=== PATIENT | male | born 1945 | race Two or more races ===

== ENCOUNTER 2020-09-03 16:47 | Outpatient (REF) | payer MEDICARE, OTHER, SELFPAY | END 2020-09-03 16:48 | disposition home or self-care (01) | LOC: HO.LAB 16:47 | PROVIDERS: Visit Provider Internal Medicine | DX: Z20.828 Contact with and (suspected) exposure to other viral communicable diseases (principal) | CPT/HCPCS: C9803; U0003 ==

== ENCOUNTER 2023-01-31 20:06 | Emergency (ER) | payer MEDICARE, MEDICAID, SELFPAY ==
--- NOTE | ~2023-01-31 | CT_ITS ---
EXAMINATION: CT ABDOMEN AND PELVIS WITHOUT CONTRAST CLINICAL INFORMATION: UTI/hematuria COMPARISON: None available. TECHNIQUE: Multidetector volumetric imaging was performed from the superior aspect of the liver through the pubic symphysis. Sagittal and coronal reformatted images were obtained on the technologist's workstation. This CT examination was performed using dose optimization techniques as appropriate, variously including the following: *Automated exposure control *Adjustment of mA and/or kV according to patient size (this includes techniques or standardized protocols for targeted exams where dose is matched to indication/reason for exam; i.e. extremities or head) *Use of iterative reconstruction technique DLP: 702 mGy-cm FINDINGS: LUNG BASES: The visualized lung bases are unremarkable. A bipolar pacemaker is present. LIVER, GALLBLADDER, AND BILIARY TREE: The liver is normal in size, shape, and attenuation. No focal hepatic lesion or biliary ductal dilatation is present. The gallbladder is unremarkable with no evidence of radiopaque gallstones, gallbladder wall thickening, or obvious pericholecystic inflammatory changes. PANCREAS: Unremarkable. SPLEEN: Unremarkable. ADRENAL GLANDS: Unremarkable. KIDNEYS AND URETERS: The kidneys are normal in size, shape, and attenuation. Bilateral benign Bosniak class I simple cysts are present the largest measuring 3.3 cm at the right lower pole. No solid renal masses. No hydronephrosis, hydroureter, or calculi seen. No perinephric stranding. BLADDER: Unremarkable. GASTROINTESTINAL TRACT: The small and large bowel are unremarkable aside from extensive colonic diverticula without diverticulitis. The appendix is unremarkable. ABDOMINAL WALL: No significant hernia is appreciated. LYMPH NODES: No retroperitoneal lymphadenopathy. VASCULAR: Unremarkable. Calcific atherosclerotic plaque without aneurysm. PELVIC VISCERA: Minimally prominent prostate. Seminal vesicles appear normal. OSSEOUS STRUCTURES: Mild degenerative changes are present CT/CT abdomen pelvis wo IV con IMPRESSION: 1. A cause for the patient's gross hematuria has not been found. 2. Incidental note made of bilateral benign Bosniak class I renal cysts which need no further follow-up, colonic diverticulosis without diverticulitis and mildly prominent prostate. 3. There are no renal or bladder calculi seen. Fleischner guidelines were followed.
[2023-01-31 20:50] VITALS: BP 166/75; PULSE 71; RESP 18; TEMP 36.6; O2SAT 100; BMI 27.1
--- NOTE | 2023-01-31 20:52 | ED.GENADULT ---
HPI - General Adult General Chief complaint: Urogenital-Male Stated complaint: Blood in urine Time Seen by Provider: 01/31/23 22:43 Source: patient Mode of arrival: ambulatory Limitations: no limitations History of Present Illness HPI narrative: 77 yold male presents to he ED for hematuria. Patient was being treated for UTI and placed on antibiotic. Patient states he finished a course of antibiotic is still notice some blood in the urine. Patient denies gross hematuria. Patient denies any flank pain, fever, chills, nausea, vomiting, or abdominal pain. Patient has follow-up with Urology. Related Data Previous Rx's Medication Instructions Recorded cefpodoxime 100 mg tablet 100 mg PO Q12H 7 days #14 tabs 02/01/23 Allergies Allergy/AdvReac Type Severity Reaction Status Date / Time No Known Allergies Allergy Unverified 06/04/20 16:16 Review of Systems Review of Systems: hematuria Yes all other systems are reviewed and are negative [facility] Social History Social History Advance Directives: No Advance Directives Information Provided: No Physical Exam ED Vital Signs: Vital Signs - 24 hr 01/31/23 20:50 01/31/23 22:04 Temperature 97.9 F 98.3 F Pulse Rate 71 66 Respiratory Rate 18 16 Blood Pressure 166/75 H 172/69 H Pulse Oximetry 100 100 Oxygen Delivery Method Room Air Room Air BMI result Body Mass Index 27.1 Const General: cooperative, healthy appearing, comfortable, no acute distress, well developed, alert, awake and Physically active Orientation/consciousness: oriented to person, oriented to place, oriented to time and patient oriented x3 HENMT Head: Yes normal to inspection, Yes No palpable skull fracture present, Yes normocephalic, Yes atraumatic and No abrasion Eyes General: appearance normal, both eyes and all related structures Neck Neck: Yes normal visual inspection, Yes full ROM, Yes no lymphadenopathy, Yes no meningeal signs, Yes trachea midline, Yes supple, No anterior neck swelling and No tender Chest Chest palpation & inspection: normal inspection of the chest and normal palpation of entire chest wall Resp Effort & Inspection: normal respiratory effort and able to speak in complete sentences Auscultation: clear to auscultation bilaterally Cardio Jugular venous distension: no JVD Heart sounds: S1 normal heart sound present and S2 normal heart sound present GI Inspection: Yes normal to inspection and No abdominal wall ecchymosis Palpation (GI): Soft to palpation, not firm, nontender, no guarding and not rigid General: No CVA tenderness and Yes no CVA tenderness Back/Spine/Pelvis Back: no CVA tenderness, No CVA tenderness and No back tenderness Skin General skin exam: no rashes or lesions noted and elasticity normal Neuro General: oriented to person, oriented to place, oriented to time, patient oriented x3, gait normal, tone normal, moves all extremities, Normal light touch and pain sensation, no meningeal signs, no focal motor deficits, CN's II-XI intact bilaterally and normal sensation to monofilament Extrem General: Yes normal to inspection and Yes full ROM Psych Appearance: grossly normal, well kempt and not disheveled Course Course Course Narrative: This is an RME: Additional HPI, ROS, PE not included below will be deferred to primary provider. [id number]-male, with a history of diabetes, HTN, CKD, a fib with pacemaker, presenting for hematuria since yesterday. Has had hematuria for the last 2 weeks intermittently. Seen by PCP last week, given ABX for UTI. Completed entire course. no nausea or vomiting. ?Unsure if he is on blood thinners. Plan: Labs, UA ordered Medical Decision Making Medical Decision Making [facility] Narrative: 77-year-old male with known urinary tract infection presents to ED for hematuria. Patient denies any flank pain, fever, chills, nausea, vomiting, or severe abdominal pain. Patient labs are at baseline and normal. UA shows large amounts of white blood cell count red blood cells. Patient is sent for abdominal CT scan came back negative for any bladder mass, kidney stones, bladder stone, or signs of pyelonephritis. Presently negative for gross hematuria. Patient informed to call his urologist for early appointment. Patient will be placed on new antibiotics. Patient and family informed to return to the ED did any rectal bleeding, vomiting blood, or gross hematuria. Patient informed to call his PCP to discuss if he should hold the xerolta due to hematuria. Presently no indication for three way sandoval. Differential Diagnosis Differential Diagnoses: The differential diagnosis associated with the presentation includes (Kidney stones, pyelonephritis, urinary tract infection, bladder mass, bladder stone) Admission/Observation Consideration of admission/observation: Escalation of care including admission/observation considered Lab Data [facility] Lab Attestation statement: I reviewed the patient's lab results. 01/31/23 21:16 05/16/23 21:16 Labs: Lab Results 01/31/23 01/31/23 01/31/23 Range/Units 21:16 21:16 21:16 WBC 7.8 (4.8-10.8) X10*3/uL RBC 3.63 L (4.60-5.80) X10*6/uL Hgb 11.0 L (14.0-18.0) g/dl Hct 33.1 L (42.0-52.0) % MCV 91.2 (80.0-98.0) fL MCH 30.3 (27.0-33.0) pg MCHC 33.2 (31.0-36.0) g/dl RDW 12.8 (11.0-16.0) % Plt Count 182 (160-400) X10*3/uL MPV 10.0 (9.4-12.4) fL Immature Gran % (Auto) 0.3 (0.0-0.4) % Neut % (Auto) 62.1 (45-73) % Lymph % (Auto) 26.3 (20-40) % [place] % (Auto) 6.2 (2-11) % Eos % (Auto) 4.3 H (0-4) % Baso % (Auto) 0.8 (0-2) % Lymph # (Auto) 2.0 (1.2-4.9) X10*3/uL [place] # (Auto) 0.5 (0.1-1.2) X10*3/uL Eos # (Auto) 0.3 (0.0-0.4) X10*3/uL Baso # (Auto) 0.1 (0.0-0.2) X10*3/uL Abs Immat Gran (auto) 0.02 (0.00-0.03) X10*3/uL Absolute Neuts (auto) 4.8 (2.0-8.3) x10*3/uL Absolute Nucleated RBC 0.000 (0.0-0.012) X10*3/uL Nucleated RBC % (auto) 0.0 (0.0-0.2) /100WBC PT 15.4 H (10.0-13.1) SEC INR 1.3 H (0.9-1.1) APTT 39.4 H (26.0-36.4) SEC Sodium 142 (135-145) mmol/L Potassium 4.2 (3.3-5.1) mmol/L Chloride 110 H (96-108) mmol/L Carbon Dioxide 26 (22-29) mmol/L Anion Gap 10 L (12-20) BUN 23 H (9-16) mg/dL Creatinine 1.54 H (0.5-1.4) mg/dL Estim Creat Clear Calc 41.4 Estimated GFR 44 Random Glucose 87 (60-115) mg/dL Calcium 9.4 (8.4-10.2) mg/dL Magnesium 2.0 (1.6-2.6) mg/dL Total Bilirubin 0.5 (0.0-1.0) mg/dL Direct Bilirubin 0.2 (0.0-0.5) mg/dL AST 16 (5-37) U/L ALT 11 (0-40) U/L Alkaline Phosphatase 93 (39-117) U/L Total Protein 7.3 (6.5-8.0) g/dL Albumin 3.8 (3.5-5.0) g/dL Lipase 28 (8-78) U/L Urine Color Urine Appearance Urine pH (5.0-9.0) Ur Specific [place] (1.005-1.025) Urine Protein (Neg-Trace) mg/dL Urine Glucose (UA) (Negative) mg/dL Urine Ketones (Negative) mg/dL Urine Blood (Negative) Urine Nitrite (Negative) Ur Leukocyte Esterase (Negative) Urine RBC (0-2) /HPF Urine WBC (0-5) /HPF Ur Squamous Epith Cells (0-2) /HPF Urine Bacteria (None Seen) Hyaline Casts (0-2) /LPF 01/31/23 Range/Units 22:04 WBC (4.8-10.8) X10*3/uL RBC (4.60-5.80) X10*6/uL Hgb (14.0-18.0) g/dl Hct (42.0-52.0) % MCV (80.0-98.0) fL MCH (27.0-33.0) pg MCHC (31.0-36.0) g/dl RDW (11.0-16.0) % Plt Count (160-400) X10*3/uL MPV (9.4-12.4) fL Immature Gran % (Auto) (0.0-0.4) % Neut % (Auto) (45-73) % Lymph % (Auto) (20-40) % [place] % (Auto) (2-11) % Eos % (Auto) (0-4) % Baso % (Auto) (0-2) % Lymph # (Auto) (1.2-4.9) X10*3/uL [place] # (Auto) (0.1-1.2) X10*3/uL Eos # (Auto) (0.0-0.4) X10*3/uL Baso # (Auto) (0.0-0.2) X10*3/uL Abs Immat Gran (auto) (0.00-0.03) X10*3/uL Absolute Neuts (auto) (2.0-8.3) x10*3/uL Absolute Nucleated RBC (0.0-0.012) X10*3/uL Nucleated RBC % (auto) (0.0-0.2) /100WBC PT (10.0-13.1) SEC INR (0.9-1.1) APTT (26.0-36.4) SEC Sodium (135-145) mmol/L Potassium (3.3-5.1) mmol/L Chloride (96-108) mmol/L Carbon Dioxide (22-29) mmol/L Anion Gap (12-20) BUN (9-16) mg/dL Creatinine (0.5-1.4) mg/dL Estim Creat Clear Calc Estimated GFR Random Glucose (60-115) mg/dL Calcium (8.4-10.2) mg/dL Magnesium (1.6-2.6) mg/dL Total Bilirubin (0.0-1.0) mg/dL Direct Bilirubin (0.0-0.5) mg/dL AST (5-37) U/L ALT (0-40) U/L Alkaline Phosphatase (39-117) U/L Total Protein (6.5-8.0) g/dL Albumin (3.5-5.0) g/dL Lipase (8-78) U/L Urine Color BROWN Urine Appearance Hazy Urine pH 5.5 (5.0-9.0) Ur Specific [place] 1.020 (1.005-1.025) Urine Protein 100 (2+) H (Neg-Trace) mg/dL Urine Glucose (UA) Negative (Negative) mg/dL Urine Ketones Negative (Negative) mg/dL Urine Blood Large (3+) H (Negative) Urine Nitrite Negative (Negative) Ur Leukocyte Esterase Moderate (2+) H (Negative) Urine RBC >20 H (0-2) /HPF Urine WBC 21-50 H (0-5) /HPF Ur Squamous Epith Cells 11-20 (0-2) /HPF Urine Bacteria 1+ (None Seen) Hyaline Casts 0-2 (0-2) /LPF Independent Interpretation I performed an independent interpretation of an: CT Scan Radiology Impression Discussion of test interpretation with radiology: I have reviewed the radiologist's reading. Prescription Management I considered prescription management with: Antibiotic Discharge Plan Discharge Clinical Impression: Urinary tract infection, Hematuria Patient Disposition: Home, Self-Care Instructions: Urinary Tract Infection in Men (ED), Hematuria (ED) Additional Instructions: Por favor llame a silva ur?logo para john checo temprana. Regrese al servicio de urgencias por hematuria macrosc?pica, dolor abdominal, n?useas, v?mitos, fiebre, escalofr?os, dolor en el costado, tensi?n urinaria o cualquier otro s?ntoma preocupante. Ser? dado de earl con antibi?ticos. Por favor, tomy un seguimiento con silva PCP. Llame a silva PCP ma?manuel para analizar si debe dejar de clarice xarelto debido a la hematuria. Prescriptions: New cefpodoxime 100 mg tablet 100 mg PO Q12H 7 Days Qty: 14 0RF Rx Instructions: must administer with a meal/food Interventions: ED Discharge Assessment Last Done: 02/01/23 01:59 Discharge Date/Time: 02/01/23 02:00 Print Language: Anguillan
[2023-01-31 21:23] LABS: MANUAL DIFF FLAG NO
[2023-01-31 21:25] LABS: Basophils Absolute Auto 0.1 X10*3/uL (0.0-0.2); Basophils Percent Auto 0.8 % (0-2); Eosinophils Absolute Auto 0.3 X10*3/uL (0.0-0.4); Eosinophils Percent Auto 4.3 % (0-4); Hematocrit 33.1 % (42.0-52.0); Imm Gran Abs Auto 0.02 X10*3/uL (0.00-0.03); Imm Gran Pct Auto 0.3 % (0.0-0.4); Lymphocytes Percent Auto 26.3 % (20-40); Mean Corpuscular HGB Conc 33.2 g/dl (31.0-36.0); Mean Corpuscular Hemoglobin 30.3 pg (27.0-33.0); Mean Corpuscular Volume 91.2 fL (80.0-98.0); Monocytes Absolute Auto 0.5 X10*3/uL (0.1-1.2); Monocytes Percent Auto 6.2 % (2-11); Neutrophils Absolute Auto 4.8 x10*3/uL (2.0-8.3); Neutrophils Percent Auto 62.1 % (45-73); Platelet Count 182 X10*3/uL (160-400); Red Blood Count 3.63 X10*6/uL (4.60-5.80); Red Cell Distribution Width 12.8 % (11.0-16.0); White Blood Count 7.8 X10*3/uL (4.8-10.8)
[2023-01-31 21:32] LABS: INTERNATIONAL NORM RATIO 1.3 (0.9-1.1); Prothrombin Time 15.4 SEC (10.0-13.1)
[2023-01-31 21:35] LABS: Partial Thromboplastin Time 39.4 SEC (26.0-36.4)
[2023-01-31 21:56] LABS: Alanine Aminotransferase 11 U/L (0-40); Albumin Level 3.8 g/dL (3.5-5.0); Alkaline Phosphatase 93 U/L (39-117); Anion Gap 10 (12-20); Aspartate Amino Transferase 16 U/L (5-37); Bilirubin Direct 0.2 mg/dL (0.0-0.5); Bilirubin Total 0.5 mg/dL (0.0-1.0); Blood Urea Nitrogen 23 mg/dL (9-16); Calcium 9.4 mg/dL (8.4-10.2); Carbon Dioxide 26 mmol/L (22-29); Chloride 110 mmol/L (96-108); Creatinine Clr Calc Pharmacy 41.4; Estimated Glomerular Filt Rate 44; Glucose Random 87 mg/dL (60-115); Lipase 28 U/L (8-78); Potassium 4.2 mmol/L (3.3-5.1); Sodium 142 mmol/L (135-145); Total Protein 7.3 g/dL (6.5-8.0)
[2023-01-31 22:04] VITALS: BP 172/69; PULSE 66; RESP 16; TEMP 36.8; O2SAT 100
--- NOTE | 2023-01-31 22:09 | PC.NURSE ---
patient awake and alert. skin pwd, resp even and non labored, speaking in full, clear sentences. patient with c/o hematuria since yesterday, recently finished macrobid for UTI, denies dysuria. currently taking xarelto. daughter at bedside. awaiting initial provider aurelio.
[2023-01-31 22:13] LABS: Appearance Urine Hazy; Color Urine BROWN; Glucose Urine UA Negative (Negative); Leukocyte Esterase Urine Moderate (2+) (Negative); Nitrite Urine Negative (Negative); PH 5.5 (5.0-9.0); UMIC TRIGGER UACC YES; Urine Blood Large (3+) (Negative); Urine Ketones Negative (Negative); Urine Protein 100 (2+) mg/dL (Neg-Trace)
[2023-01-31 22:19] LABS: Bacteria Urine 1+ (None Seen); Hyaline Casts Urine 0-2 /LPF (0-2); RBC Urine >20 /HPF (0-2); UACC Culture Trigger YES; WBC Urine 21-50 /HPF (0-5)
== END 2023-02-01 02:00 | disposition home or self-care (01) ==
PROVIDERS: Physician Assistant Medical; Emergency Provider Emergency Medicine Emergency Medical Services
DX: N39.0 Urinary tract infection, site not specified (principal); R31.9 Hematuria, unspecified
CPT/HCPCS: 36415; 74176; 80048; 80076; 81001; 83690; 83735; 85025; 85610; 85730; 87086; 87088; 87186; 99284

== ENCOUNTER 2023-07-25 11:06 | Outpatient (AMB) | payer MEDICARE, MEDICAID, SELFPAY ==
[2023-07-25 11:15] VITALS: BP 120/60; PULSE 62; O2SAT 100; BMI 28.3
--- NOTE | 2023-07-25 11:15 | HO.NEPHOV_ITS ---
HPI HPI Comments History of Present Illness Details 76 years old man with DM2 with hyperglyc emia, CKD3b, HTN, hypothyroidism, paroxysmal A-fib on DOAC, complete heart block s/p PPM 06/09. h/o Hematuria- seen by Urology and underwent cystoscopy Baseline creatinine is 1.54 Here for follow up Accompanied by family [facility] Medical History (Updated 07/25/23 @ 11:27 by Karson Miller MD) H/O Mobitz type I block Hyperlipidemia Neuropathy Mitral valve regurgitation Hypothyroidism HTN (hypertension) CKD (chronic kidney disease) Chronic depression Social History (Updated 07/25/23 @ 11:20 by Diane Darnell MA) Alcohol intake: never Patient Tobacco Use Status: Never used Tobacco Vital Signs 07/25/23 11:15 Height 5 ft 10 in Weight 197 lb 4 oz BMI 28.3 BP 120/60 Blood Pressure Location Lt brachial Position Sitting Pulse 62 Pulse Source Pulse Oximeter Pulse Oximetry (%) 100 Oxygen Delivery Method Room Air Physical Exam Vital Signs: Last Vital Signs Pulse 62 07/25/23 11:15 BP 120/60 07/25/23 11:15 Pulse Ox 100 07/25/23 11:15 Oxygen Delivery Method Room Air 07/25/23 11:15 BMI result Body Mass Index 28.3 Const General: comfortable Nutritional Appearance: well nourished Orientation/consciousness: patient oriented x3 HEENT Head: No normal to inspection Mouth: moist mucous membranes Eyes General: appearance normal, both eyes and all related structures Visual Almeida: normal visual almeida by confrontation Neck Neck: Yes supple and Yes no JVD Resp Effort & Inspection: normal respiratory effort and respiratory effort not decreased Auscultation: clear to auscultation bilaterally, no rales and rub present Cardio Jugular venous distension: no JVD Palpation: no palpable S3 and no palpable S4 Heart sounds: no rubs GI Inspection: Yes normal to inspection Palpation (GI): Soft to palpation and nontender Percussion: No Fluid wave present Auscultation: normal bowel sounds General: Yes no CVA tenderness Back/Spine/Pelvis Back: no CVA tenderness Skin General skin exam: no rashes or lesions noted Neuro General: patient oriented x3 Extrem General: Yes no pedal edema and No clubbing Results Reviewed Results Reviewed: CT scan Apr 2023 in [facility] Marked diffuse thickening of the urinary bladder wall. Differential considerations include an infectious or inflammatory etiology. A neoplastic process cannot be excluded. There is no evidence of renal calculi or obstructive uropathy. Bilateral hypodense renal lesions which likely represent cysts but are not fully characterized without intravenous contrast. Assessment & Plan Assessment & Plan (1) CKD (chronic kidney disease): Code(s): N18.9 - Chronic kidney disease, unspecified Qualifiers: Chronic kidney disease stage 3 subtype: stage 3a (GFR 45-59) Plan: 77-year-old man with longstanding hypertension diabetes mellitus with CKD. At present renal functions close to baseline. (2) Hematuria: Code(s): R31.9 - Hematuria, unspecified Qualifiers: Hematuria type: unspecified type Qualified Code(s): R31.9 - Hematuria, unspecified Plan: No further hematuria. CT scan unremarkable. Awaiting cystoscopy Neurology follow-up Orders: Orders Blood Urea Nitrogen 07/25/23 N18.9 - Chronic kidney disease, unspecified Creatinine 07/25/23 N18.9 - Chronic kidney disease, unspecified Calcium 07/25/23 N18.9 - Chronic kidney disease, unspecified Electrolytes 07/25/23 N18.9 - Chronic kidney disease, unspecified Complete Blood Count no Diff 07/25/23 N18.9 - Chronic kidney disease, unspecified Total Protein Urine Random 07/25/23 N18.9 - Chronic kidney disease, unspecified Creatinine Urine 07/25/23 N18.9 - Chronic kidney disease, unspecified UA and rflx microscopic 07/25/23 N18.9 - Chronic kidney disease, unspecified Coding Level of Care Code Est Pt Level 3 (08731) Diagnoses CKD (chronic kidney disease) N18.9 Chronic kidney disease stage 3 subtype: stage 3a (GFR 45-59) Hematuria, unspecified type R31.9 Hematuria type: unspecified type
== END 2023-07-25 11:31 | disposition home or self-care (01) ==
PROVIDERS: PCP Nurse Practitioner Family; Visit Provider Internal Medicine Hypertension Specialist
DX: N18.9 Chronic kidney disease, unspecified (principal); R31.9 Hematuria, unspecified
CPT/HCPCS: 99213

== ENCOUNTER → 2023-07-25 11:06 | Outpatient (BNVA) | payer MEDICARE, OTHER, SELFPAY | PROVIDERS: Visit Provider Internal Medicine Hypertension Specialist | DX: E11.65 Type 2 diabetes mellitus with hyperglycemia (principal); N18.30 Chronic kidney disease, stage 3 unspecified; R31.9 Hematuria, unspecified | CPT/HCPCS: 36415; 80051; 81001; 82310; 82565; 82570; 84156; 84520; 85027; 99212 ==

== ENCOUNTER 2023-07-25 11:48 | Outpatient (REF) | payer MEDICARE, OTHER, SELFPAY ==
[2023-07-25 13:25] LABS: Appearance Urine Clear; Color Urine Yellow; Glucose Urine UA Negative (Negative); Leukocyte Esterase Urine Moderate (2+) (Negative); Nitrite Urine Negative (Negative); PH 5.5 (5.0-9.0); Specific Gravity - Urine 1.015 (1.005-1.025); UMIC TRIGGER UA YES; Urine Blood Negative (Negative); Urine Ketones Negative (Negative); Urine Protein Negative (Neg-Trace)
[2023-07-25 13:39] LABS: Hematocrit 34.5 % (42.0-52.0); Hemoglobin 11.5 g/dl (14.0-18.0); Mean Corpuscular HGB Conc 33.3 g/dl (31.0-36.0); Mean Corpuscular Hemoglobin 30.9 pg (27.0-33.0); Mean Corpuscular Volume 92.7 fL (80.0-98.0); Mean Platelet Volume 11.2 fL (9.4-12.4); Platelet Count 153 X10*3/uL (160-400); Red Blood Count 3.72 X10*6/uL (4.60-5.80); Red Cell Distribution Width 12.6 % (11.0-16.0); White Blood Count 7.1 X10*3/uL (4.8-10.8)
[2023-07-25 14:13] LABS: Anion Gap 15 (12-20); Blood Urea Nitrogen 35 mg/dL (9-16); Calcium 9.5 mg/dL (8.4-10.2); Carbon Dioxide 22 mmol/L (22-29); Chloride 107 mmol/L (96-108); Estimated Glomerular Filt Rate 33; Potassium 4.7 mmol/L (3.3-5.1); Sodium 139 mmol/L (135-145)
[2023-07-25 14:21] LABS: Creatinine Urine 127.36 mg/dL; Total Protein Urine Random 14 mg/dL (<12)
[2023-07-25 14:33] LABS: Bacteria Urine 1+ (None Seen); RBC Urine 0-2 /HPF (0-2); Squamous Epithelial Cell Urine 0-2 /HPF (0-2); WBC Urine 21-50 /HPF (0-5)
== END 2023-07-25 11:49 | disposition home or self-care (01) ==
LOC: HO.10HDL 11:48
PROVIDERS: Visit Provider Internal Medicine Hypertension Specialist
DX: Z13.89 Encounter for screening for other disorder (principal)
CPT/HCPCS: 36415; 80051; 81001; 82310; 82565; 82570; 84156; 84520; 85027

== ENCOUNTER 2024-01-22 10:56 | Outpatient (AMB) | payer MEDICARE, MEDICAID, SELFPAY ==
[2024-01-22 10:57] VITALS: BP 120/52; PULSE 79; O2SAT 98; BMI 29.3
--- NOTE | 2024-01-22 10:57 | HO.NEPHOV ---
Vital Signs 01/22/24 10:57 Height 5 ft 10 in Weight 204 lb BMI 29.3 BP 120/52 L Blood Pressure Location Lt brachial Position Sitting Pulse 79 Pulse Source Pulse Oximeter Pulse Oximetry (%) 98 Oxygen Delivery Method Room Air Intake Visit Reasons: 6M follow up/ LVM Internal Review And Audit Compliance Required: No Accompanied by: Spouse Allergies No Known Allergies Allergy (Verified 01/22/24 10:59) HPI Comments Details: 76 years old man with DM2 with hyperglycemia, CKD3b, HTN, hypothyroidism, paroxysmal A-fib on DOAC, complete heart block s/p PPM 06/09. h/o Hematuria- seen by Urology and underwent cystoscopy Baseline creatinine is 1.54 Here for follow up Accompanied by family No new complaints today [facility] Medical History (Updated 07/25/23 @ 11:27 by Karson Miller MD) H/O Mobitz type I block Hyperlipidemia Neuropathy Mitral valve regurgitation Hypothyroidism HTN (hypertension) CKD (chronic kidney disease) Chronic depression Social History Alcohol intake: never Patient Tobacco Use Status: Never used Tobacco Physical Exam Vital Signs: Last Vital Signs Pulse 79 01/22/24 10:57 BP 120/52 L 01/22/24 10:57 Pulse Ox 98 01/22/24 10:57 Oxygen Delivery Method Room Air 01/22/24 10:57 BMI result Body Mass Index 29.3 Const General: comfortable Nutritional Appearance: well nourished Orientation/consciousness: patient oriented x3 HEENT Head: No normal to inspection Mouth: moist mucous membranes Eyes General: appearance normal, both eyes and all related structures Visual Almeida: normal visual almeida by confrontation Neck Neck: Yes supple and Yes no JVD Resp Effort & Inspection: normal respiratory effort and respiratory effort not decreased Auscultation: clear to auscultation bilaterally, no rales and rub present Cardio Jugular venous distension: no JVD Palpation: no palpable S3 and no palpable S4 Heart sounds: no rubs GI Inspection: Yes normal to inspection Palpation (GI): Soft to palpation and nontender Percussion: No Fluid wave present Auscultation: normal bowel sounds General: Yes no CVA tenderness Back/Spine/Pelvis Back: no CVA tenderness Skin General skin exam: no rashes or lesions noted Neuro General: patient oriented x3 Extrem General: Yes no pedal edema and No clubbing Results Reviewed Results Reviewed: CT scan CT/CT abdomen pelvis wo IV con IMPRESSION: 1. A cause for the patient's gross hematuria has not been found. 2. Incidental note made of bilateral benign Bosniak class I renal cysts which need no further follow-up, colonic diverticulosis without diverticulitis and mildly prominent prostate. 3. There are no renal or bladder calculi seen. Nephrology Results: Hgb 11.5 g/dl (14.0-18.0) L 07/25/23 WBC 7.1 X10*3/uL (4.8-10.8) 07/25/23 Plt Count 153 X10*3/uL (160-400) L 07/25/23 Sodium 139 mmol/L (135-145) 07/25/23 Potassium 4.7 mmol/L (3.3-5.1) 07/25/23 Chloride 107 mmol/L (96-108) 07/25/23 Carbon Dioxide 22 mmol/L (22-29) 07/25/23 BUN 35 mg/dL (9-16) H 07/25/23 Creatinine 1.98 mg/dL (0.5-1.4) H 07/25/23 Calcium 9.5 mg/dL (8.4-10.2) 07/25/23 Urine Protein Negative mg/dL (Neg-Trace) 07/25/23 Urine Creatinine 127.36 mg/dL 07/25/23 Assessment & Plan Assessment & Plan (1) CKD (chronic kidney disease): Code(s): N18.9 - Chronic kidney disease, unspecified Category: Medical Qualifiers: Chronic kidney disease stage 3 subtype: stage 3a (GFR 45-59) (2) Hematuria: Code(s): R31.9 - Hematuria, unspecified Category: Medical Qualifiers: Hematuria type: unspecified type Qualified Code(s): R31.9 - Hematuria, unspecified Plan 77-year-old man with longstanding hypertension diabetes mellitus with CKD. Creatinine is up to 1.9 Further serologies ordered NO obstruction by imaging Avoid nephrotoxins including NSAIDS Hematuria s/o Cystoscopy No further hematuria. CT scan unremarkable; Urology follow-up as needed Await above serology Orders: Orders Neutrophil Cytoplasma Ab Today N18.9 - Chronic kidney disease, unspecified Proteinase 3 PR3 Antibodies Today N18.9 - Chronic kidney disease, unspecified Anti Glomerular Basement Memb Today N18.9 - Chronic kidney disease, unspecified Complement C4 Today N18.9 - Chronic kidney disease, unspecified Complement C3 Today N18.9 - Chronic kidney disease, unspecified Comprehensive Met. Panel Today N18.9 - Chronic kidney disease, unspecified Complete Blood Count Auto Diff Today N18.30 - Chronic kidney disease, stage 3 unspecified, N18.9 - Chronic kidney disease, unspecified REJI Reflex Titer and Pattern Today N18.9 - Chronic kidney disease, unspecified Myeloperoxidase Antibody Today N18.9 - Chronic kidney disease, unspecified Protein Electrophoresis, Serum Today N18.9 - Chronic kidney disease, unspecified Coding Level of Care Code Est Pt Level 4 (53142) Diagnoses CKD (chronic kidney disease) N18.9 Chronic kidney disease stage 3 subtype: stage 3a (GFR 45-59) Hematuria, unspecified type R31.9 Hematuria type: unspecified type
== END 2024-01-22 11:19 | disposition home or self-care (01) ==
PROVIDERS: PCP Nurse Practitioner Family; Visit Provider Internal Medicine Hypertension Specialist
DX: N18.9 Chronic kidney disease, unspecified (principal); R31.9 Hematuria, unspecified
CPT/HCPCS: 99214

== ENCOUNTER → 2024-01-22 10:56 | Outpatient (BNVA) | payer MEDICARE, OTHER, SELFPAY | PROVIDERS: PCP Nurse Practitioner Family; Visit Provider Internal Medicine Hypertension Specialist ==

== ENCOUNTER 2024-01-22 11:23 | Outpatient (REF) | payer MEDICARE, OTHER, SELFPAY ==
[2024-01-22 13:29] LABS: MANUAL DIFF FLAG NO
[2024-01-22 13:36] LABS: Basophils Percent Auto 0.5 % (0-2); Eosinophils Absolute Auto 0.2 X10*3/uL (0.0-0.4); Eosinophils Percent Auto 2.9 % (0-4); Imm Gran Abs Auto 0.02 X10*3/uL (0.00-0.03); Imm Gran Pct Auto 0.3 % (0.0-0.4); Lymphocytes Absolute Auto 1.3 X10*3/uL (1.2-4.9); Lymphocytes Percent Auto 21.6 % (20-40); Mean Corpuscular HGB Conc 33.3 g/dl (31.0-36.0); Mean Corpuscular Hemoglobin 31.6 pg (27.0-33.0); Mean Corpuscular Volume 94.8 fL (80.0-98.0); Mean Platelet Volume 11.7 fL (9.4-12.4); Monocytes Absolute Auto 0.3 X10*3/uL (0.1-1.2); Monocytes Percent Auto 5.6 % (2-11); Neutrophils Absolute Auto 4.1 x10*3/uL (2.0-8.3); Neutrophils Percent Auto 69.1 % (45-73); Platelet Count 129 X10*3/uL (160-400); Red Blood Count 3.48 X10*6/uL (4.60-5.80); Red Cell Distribution Width 12.8 % (11.0-16.0); White Blood Count 5.9 X10*3/uL (4.8-10.8)
[2024-01-22 13:56] LABS: Alanine Aminotransferase 9 U/L (0-40); Albumin Level 4.1 g/dL (3.5-5.0); Alkaline Phosphatase 70 U/L (39-117); Anion Gap 12 (12-20); Aspartate Amino Transferase 13 U/L (5-37); Bilirubin Total 0.6 mg/dL (0.0-1.0); Blood Urea Nitrogen 45 mg/dL (9-16); Calcium 9.9 mg/dL (8.4-10.2); Carbon Dioxide 23 mmol/L (22-29); Chloride 109 mmol/L (96-108); Estimated Glomerular Filt Rate 32; Glucose Random 177 mg/dL (60-115); Potassium 5.1 mmol/L (3.3-5.1); Sodium 139 mmol/L (135-145); Total Protein 7.9 g/dL (6.5-8.0)
[2024-01-23 14:28] LABS: Anti Glomerular Basement Memb <1.0 AI; Myeloperoxidase Antibody <1.0 AI; Proteinase 3 PR3 Antibodies <1.0 AI
[2024-01-23 14:43] LABS: Prot Elec - Albumin 4.2 g/dL (3.8-4.8); Prot Elec - Alpha1 0.3 g/dL (0.2-0.3); Prot Elec - Alpha2 0.7 g/dL (0.5-0.9); Prot Elec - Beta 1 0.4 g/dL (0.4-0.6); Prot Elec - Beta 2 0.4 g/dL (0.2-0.5); Prot Elec - Gamma 1.4 g/dL (0.8-1.7); Prot Elec - Total Protein 7.5 g/dL (6.1-8.1)
[2024-01-24 08:29] LABS: Neutrophil Cyto Ab Screen NEGATIVE (NEGATIVE)
[2024-01-24 13:28] LABS: Complement C3 85 mg/dL (82-185)
[2024-01-26 12:59] LABS: Anti Nuclear Antibody Screen POSITIVE (NEGATIVE)
== END 2024-01-22 11:24 | disposition home or self-care (01) ==
LOC: HO.10HDL 11:23
PROVIDERS: Visit Provider Internal Medicine Hypertension Specialist
DX: N18.30 Chronic kidney disease, stage 3 unspecified (principal)
CPT/HCPCS: 36415; 80053; 83520; 84165; 85025; 86021; 86036; 86038; 86039; 86160; 99212

== ENCOUNTER 2024-03-27 09:06 | Emergency (ER) | payer MEDICARE, MEDICAID, SELFPAY ==
[2024-03-27] VITALS (7 sets, daily range): BP systolic 140–164; BP diastolic 60–86; PULSE 59–72; RESP 15–18; TEMP 36.6–36.9; O2SAT 98–100; BMI 31.1
--- NOTE | 2024-03-27 | ECG_ITS ---
Test Reason : dizziness Blood Pressure : / mmHG Vent. Rate : 062 BPM Atrial Rate : 062 BPM P-R Int : 178 ms QRS Dur : 158 ms QT Int : 474 ms P-R-T Axes : 117 -71 087 degrees QTc Int : 481 ms AV dual-paced rhythm Abnormal ECG When compared with ECG of 27-MAR-2024 09:18, No significant change was found Referred By: Carla Calloway Electronically Signed By:Oseas Lopes
--- NOTE | ~2024-03-27 | CT_ITS ---
EXAMINATION: CT HEAD WITHOUT CONTRAST CLINICAL INFORMATION: Acute dizziness, vomiting on Xarelto. COMPARISON: Head CT from 07/31/2015 TECHNIQUE: Contiguous axial imaging was performed from the skull base to vertex without intravenous administration of contrast. This CT examination was performed using dose optimization techniques as appropriate, variously including the following: *Automated exposure control *Adjustment of mA and/or kV according to patient size (this includes techniques or standardized protocols for targeted exams where dose is matched to indication/reason for exam; i.e. extremities or head) *Use of iterative reconstruction technique DLP: 684 mGy-cm FINDINGS: No acute intracranial findings. There is atherosclerotic calcification of cavernous carotid arteries. The mayorga-white matter differentiation is well preserved. No evidence of an acute major vascular territory infarction. No intracranial hemorrhage, extra-axial fluid collection, focal mass effect or midline shift. The ventricles have normal size and configuration; no hydrocephalus. The brainstem and cerebellum have a normal appearance. The cerebellar tonsils are in normal position. The calvarium is intact. Small 0.3 cm mucous retention cyst of the right maxillary sinus. The mastoid air cells and middle ear cavities are well aerated. Prior ocular lens extractions. The orbits are unremarkable. Mild osteoarthrosis of the temporomandibular joints. CT/CT head/brain wo IV con IMPRESSION: No mass, intracranial hemorrhage or other acute intracranial pathology.
--- NOTE | 2024-03-27 09:34 | ED.DIZZY ---
HPI - Dizziness General Chief Complaint: Dizziness Stated Complaint: VOMITING,DIZZY PER EMS Time Seen by Provider: 03/27/24 09:13 Source: patient Mode of arrival: ambulatory Limitations: no limitations History of Present Illness ED Provider: GILBERT APONTE Narrative: 78 yo male with PMH of CKD, HTN, CAD s/p CABG x3V, DM, hypothyroidism, PAF on xarelto, complete heart block s/p PPM 2021 here with c/o waking up feeling the room was spinning it is intermittent and then he vomited x 2. Symptoms come and go he felt fine at one point able to shower then it started again. He has not eaten or drank anything this AM. He has no pain, chest pain, dyspnea or numbness/weakness. No recent infections. He is not sure what makes it worse MD elicited complaint: dizziness Pertinent past history: pacemaker Onset (ago): hour(s) (730am woke up with symptoms) Timing: awoke with symptoms Severity: moderate Description: room spinning History of similar symptoms: No Exacerbating factors: change in body position Relieving factors: remaining still Associated symptoms: nausea and vomiting Related Data Home Medications ?Medication ?Instructions ?Recorded ?Confirmed amlodipine 5 mg tablet 5 mg PO DAILY 07/24/23 atorvastatin 20 mg tablet 20 mg PO DAILY 07/24/23 glipizide 10 mg tablet, extended 10 mg PO DAILY 07/24/23 release 24 hr levothyroxine 112 mcg tablet 112 mcg PO DAILY 07/24/23 lisinopril 20 1 tab PO DAILY 07/24/23 mg-hydrochlorothiazide 25 mg tablet omeprazole 20 mg capsule,delayed 20 mg PO DAILY 07/24/23 release rivaroxaban 20 mg tablet (Xarelto) 20 mg PO DAILY 07/24/23 aspirin 81 mg tablet,delayed 81 mg PO DAILY 01/22/24 release Allergies Allergy/AdvReac Type Severity Reaction Status Date / Time No Known Allergies Allergy Verified 03/27/24 09:22 Review of Systems Review of Systems: Constitutional : No Fever, No Chills, No Fatigue ENT/Mouth : No sore throat, No Rhinorrhea Eyes: No Eye Pain, No Swelling, No Redness Cardiovascular : No Chest Pain, No SOB, No Dyspnea on Exertion Respiratory : No Cough, No Sputum Gastrointestinal : pos Nausea, pos Vomiting, No Diarrhea, No abdominal Pain Genitourinary : No Dysuria, No Urinary Frequency, No Hematuria, Musculoskeletal : No joint pain, No Myalgias, No Joint Swelling Skin : No Skin Lesions, No rash Neuro : No Weakness, No Numbness, pos Dizziness, no Headache Psych : No Anxiety/Panic, No Depression Heme/Lymph: No Bruising, No Bleeding,No Lymphadenopathy Endocrine : No Polyuria, No Polydipsia All other systems reviewed and are negative [facility] Past Medical History Attestation statement: The following information was validated with the patient. Source: old records reviewed Medical History H/O Mobitz type I block Hyperlipidemia Neuropathy Mitral valve regurgitation Hypothyroidism HTN (hypertension) CKD (chronic kidney disease) Chronic depression Social History Social History Alcohol intake: never Patient Tobacco Use Status: Never used Tobacco Smoked in Last 30 Days: No Use of substances other than those prescribed or required for medical reasons: No Advance Directives: No Advance Directives Information Provided: Yes Do you have a plan to hurt others: No Plan Physical Exam Vital Signs: Vital Signs: Last Vital Signs Temp 98.1 F 03/27/24 12:30 Pulse 61 03/27/24 12:30 Resp 16 03/27/24 12:30 BP 147/67 H 03/27/24 10:00 Pulse Ox 98 03/27/24 10:00 O2 Del Method Room Air 03/27/24 12:30 BMI result Body Mass Index 31.1 Appearance: Alert. Oriented X3. No acute distress. Eyes: Pupils equal, round and reactive to light. ENT: Pharynx normal. Neck: Normal inspection. Neck supple. CVS: Normal heart rate and rhythm. Pulses normal. Respiratory: No respiratory distress. Breath sounds normal. Abdomen: Soft and non-tender. Skin: Skin warm and dry. Normal skin color. Normal skin turgor. Extremities: No lower extremity edema. No calf ttp Neuro: Oriented X 3. No motor deficit. No sensory deficit. no nystagmus Course Course Course Narrative: K only 5.4 low dose lokelma ordered Medications Administered Discontinued Medications Generic Name Dose Route Start Last Admin Trade Name Freq PRN Reason Stop Dose Admin Ondansetron HCl 4 mg 03/27/24 09:32 03/27/24 09:36 Ondansetron Hcl 4 Mg/2 Ml Vial IVPUSH 03/27/24 09:33 4 mg ONCE ONE Administration Sodium Zirconium Cyclosilicate 5 gm 03/27/24 10:09 03/27/24 10:33 Sodium Zirconium Cyclosilicate 5 Gm Powd.Pack PO 03/27/24 10:10 5 gm ONCE ONE Administration Medical Decision Making Medical Decision Making [facility] Narrative: 78 yo male with PMH of CKD, HTN, CAD s/p CABG x3V, DM, hypothyroidism, PAF on xarelto, complete heart block s/p PPM 2021 here with nonspecific dizziness and n/v that is now improved he has no other symptoms to suggest posterior stroke he did wake with symptoms and is on DOAC at this time EKG, ortho VS, CBC, Cr and ortho VS ordered. Hx of same in past and he was anemic no GIB symptoms reported. Differential Diagnosis Differential Diagnoses: The differential diagnosis associated with the presentation includes anemia, MAHAD on CKD, orthostatic hypotension, ICH Admission/Observation Consideration of admission/observation: Escalation of care including admission/observation considered VS stable CT scan normal negative ortho VS paced rhythm trop flat x 2 no vomiting here doubt UTI trace bacteria will wait on culture has no urinary symptoms ambulating fine no complaints no ataxia looks well can go home Lab Data [facility] Lab Attestation statement: I reviewed the patient's lab results. 03/27/24 09:29 03/27/24 09:29 Labs: Lab Results 03/27/24 03/27/24 03/27/24 Range/Units 09:29 09:49 11:31 WBC 6.0 (4.8-10.8) X10*3/uL RBC 3.44 L (4.60-5.80) X10*6/uL Hgb 11.0 L (14.0-18.0) g/dl Hct 32.1 L (42.0-52.0) % MCV 93.3 (80.0-98.0) fL MCH 32.0 (27.0-33.0) pg MCHC 34.3 (31.0-36.0) g/dl RDW 12.5 (11.0-16.0) % Plt Count 136 L (160-400) X10*3/uL MPV 10.8 (9.4-12.4) fL Immature Gran % (Auto) 0.2 (0.0-0.4) % Neut % (Auto) 79.5 H (45-73) % Lymph % (Auto) 14.3 L (20-40) % Dillon % (Auto) 4.0 (2-11) % Eos % (Auto) 1.5 (0-4) % Baso % (Auto) 0.5 (0-2) % Lymph # (Auto) 0.9 L (1.2-4.9) X10*3/uL Dillon # (Auto) 0.2 (0.1-1.2) X10*3/uL Eos # (Auto) 0.1 (0.0-0.4) X10*3/uL Baso # (Auto) 0.0 (0.0-0.2) X10*3/uL Abs Immat Gran (auto) 0.01 (0.00-0.03) X10*3/uL Absolute Neuts (auto) 4.8 (2.0-8.3) x10*3/uL Absolute Nucleated RBC 0.000 (0.0-0.012) X10*3/uL Nucleated RBC % (auto) 0.0 (0.0-0.2) /100WBC PT 17.8 H (11.1-13.3) SEC INR 1.5 H (0.9-1.1) Sodium 138 (135-145) mmol/L Potassium 5.4 H (3.3-5.1) mmol/L Chloride 110 H (96-108) mmol/L Carbon Dioxide 22 (22-29) mmol/L Anion Gap 11 L (12-20) BUN 39 H (9-16) mg/dL Creatinine 1.89 H (0.5-1.4) mg/dL Estim Creat Clear Calc 37.8 Estimated GFR 35 Random Glucose 168 H (60-115) mg/dL Calcium 9.6 (8.4-10.2) mg/dL Magnesium 2.3 (1.6-2.6) mg/dL Total Bilirubin 0.5 (0.0-1.0) mg/dL AST 14 (5-37) U/L ALT 7 (0-40) U/L Alkaline Phosphatase 84 (39-117) U/L Troponin I High Sens 6.6 (<3.5-35.0) ng/L B-Natriuretic Peptide 121 H (<100) pg/mL Total Protein 7.6 (6.5-8.0) g/dL Albumin 4.0 (3.5-5.0) g/dL Lipase 23 (8-78) U/L Urine Color Yellow Urine Appearance Clear Urine pH 6.5 (5.0-9.0) Ur Specific Boron 1.015 (1.005-1.025) Urine Protein Negative (Neg-Trace) mg/dL Urine Glucose (UA) Negative (Negative) mg/dL Urine Ketones Negative (Negative) mg/dL Urine Blood Negative (Negative) Urine Nitrite Negative (Negative) Ur Leukocyte Esterase Small (1+) H (Negative) Urine RBC 0-2 (0-2) /HPF Urine WBC 6-10 H (0-5) /HPF Ur Squamous Epith Cells 3-5 (0-2) /HPF Urine Bacteria Trace (None Seen) Hyaline Casts 0-2 (0-2) /LPF Influenza Type A (PCR) NEGATIVE (Negative) Influenza Type B (PCR) NEGATIVE (Negative) RSV RNA Qual (PCR) NEGATIVE (Negative) SARS-CoV-2 RNA (RT-PCR) NEGATIVE (Negative) 03/27/24 Range/Units 12:54 WBC (4.8-10.8) X10*3/uL RBC (4.60-5.80) X10*6/uL Hgb (14.0-18.0) g/dl Hct (42.0-52.0) % MCV (80.0-98.0) fL MCH (27.0-33.0) pg MCHC (31.0-36.0) g/dl RDW (11.0-16.0) % Plt Count (160-400) X10*3/uL MPV (9.4-12.4) fL Immature Gran % (Auto) (0.0-0.4) % Neut % (Auto) (45-73) % Lymph % (Auto) (20-40) % Dillon % (Auto) (2-11) % Eos % (Auto) (0-4) % Baso % (Auto) (0-2) % Lymph # (Auto) (1.2-4.9) X10*3/uL Dillon # (Auto) (0.1-1.2) X10*3/uL Eos # (Auto) (0.0-0.4) X10*3/uL Baso # (Auto) (0.0-0.2) X10*3/uL Abs Immat Gran (auto) (0.00-0.03) X10*3/uL Absolute Neuts (auto) (2.0-8.3) x10*3/uL Absolute Nucleated RBC (0.0-0.012) X10*3/uL Nucleated RBC % (auto) (0.0-0.2) /100WBC PT (11.1-13.3) SEC INR (0.9-1.1) Sodium (135-145) mmol/L Potassium (3.3-5.1) mmol/L Chloride (96-108) mmol/L Carbon Dioxide (22-29) mmol/L Anion Gap (12-20) BUN (9-16) mg/dL Creatinine (0.5-1.4) mg/dL Estim Creat Clear Calc Estimated GFR Random Glucose (60-115) mg/dL Calcium (8.4-10.2) mg/dL Magnesium (1.6-2.6) mg/dL Total Bilirubin (0.0-1.0) mg/dL AST (5-37) U/L ALT (0-40) U/L Alkaline Phosphatase (39-117) U/L Troponin I High Sens 6.8 (<3.5-35.0) ng/L B-Natriuretic Peptide (<100) pg/mL Total Protein (6.5-8.0) g/dL Albumin (3.5-5.0) g/dL Lipase (8-78) U/L Urine Color Urine Appearance Urine pH (5.0-9.0) Ur Specific Boron (1.005-1.025) Urine Protein (Neg-Trace) mg/dL Urine Glucose (UA) (Negative) mg/dL Urine Ketones (Negative) mg/dL Urine Blood (Negative) Urine Nitrite (Negative) Ur Leukocyte Esterase (Negative) Urine RBC (0-2) /HPF Urine WBC (0-5) /HPF Ur Squamous Epith Cells (0-2) /HPF Urine Bacteria (None Seen) Hyaline Casts (0-2) /LPF Influenza Type A (PCR) (Negative) Influenza Type B (PCR) (Negative) RSV RNA Qual (PCR) (Negative) SARS-CoV-2 RNA (RT-PCR) (Negative) Independent Interpretation I performed an independent interpretation of an: EKG and CT Scan Interpretation: Rate: 62 Rhythm: paced [place]: left wide QRS complex. ST T wave : qTC: 481 prior studies: paced The study has been interpreted contemporaneously by me. . Radiology Impression Discussion of test interpretation with radiology: I have reviewed the radiologist's reading. Independent Historian Clinical information obtained from an independent historian. History obtained from or confirmed by: Spouse and EMS External Record Review External record reviewed: Inpatient record and Office record Discharge Plan Discharge Clinical Impression: Dizziness Patient Disposition: Home, Self-Care Instructions: Dizziness (ED) Additional Instructions: negative CT head, heart tests normal x 2 no change in blood counts kidney function at baseline normal walking in ED stay with responsible adult return for any worsening symptoms or concerns Prescriptions: No Action levothyroxine 112 mcg tablet 112 mcg PO DAILY Xarelto 20 mg tablet 20 mg PO DAILY lisinopril-hydrochlorothiazide 20-25 mg tablet 1 tab PO DAILY omeprazole 20 mg capsule,delayed release(DR/EC) 20 mg PO DAILY amlodipine 5 mg tablet 5 mg PO DAILY glipizide 10 mg tablet extended release 24hr 10 mg PO DAILY atorvastatin 20 mg tablet 20 mg PO DAILY aspirin 81 mg tablet,delayed release (DR/EC) 81 mg PO DAILY Print Language: Yemeni
[2024-03-27] MEDS: ondansetron HCL 4 MG/2 ML VIAL IVPUSH (09:36)
[2024-03-27 09:37] LABS: MANUAL DIFF FLAG NO
[2024-03-27 09:39] LABS: Basophils Percent Auto 0.5 % (0-2); Eosinophils Absolute Auto 0.1 X10*3/uL (0.0-0.4); Eosinophils Percent Auto 1.5 % (0-4); Hematocrit 32.1 % (42.0-52.0); Imm Gran Abs Auto 0.01 X10*3/uL (0.00-0.03); Imm Gran Pct Auto 0.2 % (0.0-0.4); Lymphocytes Absolute Auto 0.9 X10*3/uL (1.2-4.9); Lymphocytes Percent Auto 14.3 % (20-40); Mean Corpuscular HGB Conc 34.3 g/dl (31.0-36.0); Mean Corpuscular Volume 93.3 fL (80.0-98.0); Mean Platelet Volume 10.8 fL (9.4-12.4); Monocytes Absolute Auto 0.2 X10*3/uL (0.1-1.2); Neutrophils Absolute Auto 4.8 x10*3/uL (2.0-8.3); Neutrophils Percent Auto 79.5 % (45-73); Platelet Count 136 X10*3/uL (160-400); Red Blood Count 3.44 X10*6/uL (4.60-5.80); Red Cell Distribution Width 12.5 % (11.0-16.0)
[2024-03-27 09:44] LABS: INTERNATIONAL NORM RATIO 1.5 (0.9-1.1); Prothrombin Time 17.8 SEC (11.1-13.3)
[2024-03-27 09:56] LABS: Alanine Aminotransferase 7 U/L (0-40); Alkaline Phosphatase 84 U/L (39-117); Anion Gap 11 (12-20); Aspartate Amino Transferase 14 U/L (5-37); Bilirubin Total 0.5 mg/dL (0.0-1.0); Blood Urea Nitrogen 39 mg/dL (9-16); Calcium 9.6 mg/dL (8.4-10.2); Carbon Dioxide 22 mmol/L (22-29); Chloride 110 mmol/L (96-108); Creatinine Clr Calc Pharmacy 37.8; Estimated Glomerular Filt Rate 35; Glucose Random 168 mg/dL (60-115); Lipase 23 U/L (8-78); Magnesium 2.3 mg/dL (1.6-2.6); Potassium 5.4 mmol/L (3.3-5.1); Sodium 138 mmol/L (135-145); Total Protein 7.6 g/dL (6.5-8.0)
[2024-03-27 10:02] LABS: B Type Natriuretic Peptide 121 pg/mL (<100)
[2024-03-27 10:03] LABS: Troponin-I High Sensitivity 6.6 ng/L (<3.5-35.0)
[2024-03-27] MEDS: Sodium Zirconium Cyclosilicate 5 GM POWD.PACK PO (10:33)
--- NOTE | 2024-03-27 10:34 | PC.NURSE ---
pt medicated per order -float rn
[2024-03-27 11:03] LABS: Influenza A PCR NEGATIVE (Negative); Influenza B PCR NEGATIVE (Negative); Resp Syncy Virus RNA Qual PCR NEGATIVE (Negative); SARS COV2 PCR INHOUSE NEGATIVE (Negative)
[2024-03-27 11:50] LABS: Appearance Urine Clear; Color Urine Yellow; Glucose Urine UA Negative (Negative); Leukocyte Esterase Urine Small (1+) (Negative); Nitrite Urine Negative (Negative); PH 6.5 (5.0-9.0); Specific Gravity - Urine 1.015 (1.005-1.025); UMIC TRIGGER UACC YES; Urine Blood Negative (Negative); Urine Ketones Negative (Negative); Urine Protein Negative (Neg-Trace)
[2024-03-27 11:55] LABS: Bacteria Urine Trace (None Seen); Hyaline Casts Urine 0-2 /LPF (0-2); RBC Urine 0-2 /HPF (0-2); UACC Culture Trigger YES
[2024-03-27 13:32] LABS: Troponin-I High Sensitivity 6.8 ng/L (<3.5-35.0)
== END 2024-03-27 14:17 | disposition home or self-care (01) ==
PROVIDERS: Emergency Provider Emergency Medicine; PCP Nurse Practitioner Family
DX: R42 Dizziness and giddiness (principal); R11.2 Nausea with vomiting, unspecified; I25.10 Atherosclerotic heart disease of native coronary artery without angina pectoris; R94.31 Abnormal electrocardiogram [ECG] [EKG]; R06.02 Shortness of breath; Z03.818 Encounter for observation for suspected exposure to other biological agents ruled out; Z79.899 Other long term (current) drug therapy; Z79.01 Long term (current) use of anticoagulants
CPT/HCPCS: 0241U; 36415; 70450; 80053; 81001; 83690; 83735; 83880; 84484; 85025; 85610; 87086; 87088; 87186; 93005; 96374; 99284; 99285; J2405

== ENCOUNTER → 2024-03-27 09:21 | Outpatient (BNV) | payer MEDICARE, MEDICAID, SELFPAY | PROVIDERS: Emergency Provider Emergency Medicine; PCP Nurse Practitioner Family; Visit Provider Internal Medicine Cardiovascular Disease | DX: R94.31 Abnormal electrocardiogram [ECG] [EKG] (principal) | CPT/HCPCS: 93010 ==

== ENCOUNTER 2024-04-16 11:44 | Outpatient (AMB) | payer MEDICARE, MEDICAID, SELFPAY ==
[2024-04-16 11:50] VITALS: BP 112/54; PULSE 77; O2SAT 99; BMI 29.6
--- NOTE | 2024-04-16 11:50 | HO.NEPHOV_ITS ---
Vital Signs 04/16/24 11:50 Height 5 ft 10 in Weight 206 lb BMI 29.6 BP 112/54 L Blood Pressure Location Lt brachial Position Sitting Pulse 77 Pulse Source Pulse Oximeter Pulse Oximetry (%) 99 Oxygen Delivery Method Room Air Intake Visit Reasons: PCP req sooner appt- High K- Confirmed Intake Note: [facility] [place] [facility] [employer] declined patient filled out refusal from and scanned into pat ient chart. His daughter will translate Holly Parker [employer] Required: No Maintenance [employer] Services: [employer] Offered & Declined Accompanied by: Daughter Allergies No Known Allergies Allergy (Verified 04/16/24 11:55) HPI Comments Details: 76 years old man with DM2 with hyperglycemia, CKD3b, HTN, hypothyroidism, paroxysmal A-fib on DOAC, complete heart block s/p PPM 06/09. h/o Hematuria- seen by Urology and underwent cystoscopy Baseline creatinine is 1.54 Here for follow up Accompanied by family 04/16/24 Recently he visited ER and was found to have potassium of 5.4. Prior to this visit he had some nausea or vomiting. P.o. intake was poor no urinary symptoms. UTI was initially suspected and started on nitrofurantoin which was later discontinued. Today he is feeling well. [facility] Medical History H/O Mobitz type I block Hyperlipidemia Neuropathy Mitral valve regurgitation Hypothyroidism HTN (hypertension) CKD (chronic kidney disease) Chronic depression Social History Alcohol intake: never Patient Tobacco Use Status: Never used Tobacco Physical Exam Vital Signs: Last Vital Signs Pulse 77 04/16/24 11:50 BP 112/54 L 04/16/24 11:50 Pulse Ox 99 04/16/24 11:50 Oxygen Delivery Method Room Air 04/16/24 11:50 BMI result Body Mass Index 29.6 Const General: comfortable; No acute distress Orientation/consciousness: patient oriented x3 Eyes General: appearance normal, both eyes and all related structures Visual Almeida: normal visual almeida by confrontation Neck Neck: Yes supple and Yes no JVD Resp Effort & Inspection: normal respiratory effort and respiratory effort not decreased Auscultation: rhonchi Cardio Palpation: no palpable S3 and no palpable S4 Heart sounds: no rubs GI Inspection: Yes normal to inspection Palpation (GI): Soft to palpation Percussion: Yes normal to percussion Auscultation: normal bowel sounds General: Yes no CVA tenderness Back/Spine/Pelvis Back: no CVA tenderness Skin General skin exam: no petechiae and no purpura Neuro General: patient oriented x3 and no focal motor deficits Extrem General: No clubbing and No edema Results Reviewed Nephrology Results: Hgb 11.0 g/dl (14.0-18.0) L 03/27/24 WBC 6.0 X10*3/uL (4.8-10.8) 03/27/24 Plt Count 136 X10*3/uL (160-400) L 03/27/24 Sodium 138 mmol/L (135-145) 03/27/24 Potassium 5.4 mmol/L (3.3-5.1) H 03/27/24 Chloride 110 mmol/L (96-108) H 03/27/24 Carbon Dioxide 22 mmol/L (22-29) 03/27/24 BUN 39 mg/dL (9-16) H 03/27/24 Creatinine 1.89 mg/dL (0.5-1.4) H 03/27/24 Calcium 9.6 mg/dL (8.4-10.2) 03/27/24 Urine Protein Negative mg/dL (Neg-Trace) 03/27/24 Urine Creatinine 127.36 mg/dL 07/25/23 Assessment & Plan Assessment & Plan (1) CKD (chronic kidney disease): Code(s): N18.9 - Chronic kidney disease, unspecified Category: Medical Qualifiers: Chronic kidney disease stage 3 subtype: stage 3a (GFR 45-59) (2) Hematuria: Code(s): R31.9 - Hematuria, unspecified Category: Medical Qualifiers: Hematuria type: unspecified type Qualified Code(s): R31.9 - Hematuria, unspecified Plan 77-year-old man with longstanding hypertension diabetes mellitus with CKD. Creatinine is up to 1.9 Renal function is close to baseline. NO obstruction by imaging Avoid nephrotoxins including NSAIDS He had 1 episode of mild hyperkalemia. This is probably due to the continued use of MELO inhibitors in the setting of volume depletion which could have occurred with nausea or vomiting and poor p.o. intake. She will repeat potassium and renal function today. I expect these to have returned to baseline if the potassium stays persistently elevated I will lower the MELO inhibitor and use Lokelma p.r.n.. He will benefit from a low-potassium diet. h/o Hematuria s/o Cystoscopy No further hematuria. CT scan unremarkable; Urology follow-up as needed Orders: Orders Basic Metabolic Panel Today N18.9 - Chronic kidney disease, unspecified Coding Level of Care Code Est Pt Level 4 (93047) Diagnoses CKD (chronic kidney disease) N18.9 Chronic kidney disease stage 3 subtype: stage 3a (GFR 45-59) Hematuria, unspecified type R31.9 Hematuria type: unspecified type
== END 2024-04-16 12:17 | disposition home or self-care (01) ==
PROVIDERS: PCP Nurse Practitioner Family; Visit Provider Internal Medicine Hypertension Specialist
DX: N18.9 Chronic kidney disease, unspecified (principal); R31.9 Hematuria, unspecified
CPT/HCPCS: 99214

== ENCOUNTER → 2024-04-16 11:44 | Outpatient (BNVA) | payer MEDICARE, MEDICAID, SELFPAY | PROVIDERS: PCP Nurse Practitioner Family; Visit Provider Internal Medicine Hypertension Specialist | DX: E11.22 Type 2 diabetes mellitus with diabetic chronic kidney disease (principal); E11.65 Type 2 diabetes mellitus with hyperglycemia; I12.9 Hypertensive chronic kidney disease with stage 1 through stage 4 chronic kidney disease, or unspecified chronic kidney disease; N18.30 Chronic kidney disease, stage 3 unspecified; R31.9 Hematuria, unspecified | CPT/HCPCS: 99212 ==

== ENCOUNTER 2024-04-17 08:38 | Outpatient (REF) | payer MEDICARE, MEDICAID, SELFPAY ==
[2024-04-17 11:26] LABS: Anion Gap 13 (12-20); Blood Urea Nitrogen 43 mg/dL (9-16); Calcium 9.8 mg/dL (8.4-10.2); Carbon Dioxide 23 mmol/L (22-29); Chloride 107 mmol/L (96-108); Estimated Glomerular Filt Rate 27; Glucose Random 124 mg/dL (60-115); Potassium 4.8 mmol/L (3.3-5.1); Sodium 138 mmol/L (135-145)
== END 2024-04-17 08:39 | disposition home or self-care (01) ==
LOC: HO.10HDL 08:38
PROVIDERS: Visit Provider Internal Medicine Hypertension Specialist
DX: N18.9 Chronic kidney disease, unspecified (principal)
CPT/HCPCS: 36415; 80048

== ENCOUNTER 2024-06-20 10:11 | Outpatient (AMB) | payer MEDICARE, MEDICAID, SELFPAY ==
[2024-06-20 10:15] VITALS: BP 118/50; PULSE 79; O2SAT 98; BMI 30.1
--- NOTE | 2024-06-20 10:15 | HO.NEPHOV_ITS ---
Vital Signs 06/20/24 10:15 Height 5 ft 10 in Weight 210 lb BMI 30.1 BP 118/50 L Blood Pressure Location Rt brachial Position Sitting Pulse 79 Pulse Source Pulse Oximeter Pulse Oximetry (%) 98 Oxygen Delivery Method Room Air Intake Visit Reasons: CKD/ 5 MO FU/ Conf Appliances Sample Maker Name: lianna [id number] Accompanied by: Spouse Allergies No Known Allergies Allergy (Verified 04/16/24 11:55) Medication List - Last Reconciled 06/20/24 by Karson Miller MD amlodipine 5 mg PO DAILY aspirin 81 mg PO DAILY atorvastatin 20 mg PO DAILY glipizide ER 10 mg PO DAILY levothyroxine 88 mcg PO DAILY lisinopril-hydrochlorothiazide 20-25 mg 1 tab PO DAILY nitrofurantoin monohyd/m-cryst 100 mg (Macrobid) 100 mg PO Q12H 5 days omeprazole 20 mg PO DAILY rivaroxaban (Xarelto) 20 mg PO DAILY tamsulosin 0.4 mg PO DAILY HPI Comments Details: 76 years old man with DM2 with hyperglycemia, CKD3b, HTN, hypothyroidism, paroxysmal A-fib on DOAC, complete heart block s/p PPM 06/09. h/o Hematuria- seen by Urology and underwent cystoscopy Baseline creatinine is 1.54 Here for follow up Accompanied by family 04/16/24 Recently he visited ER and was found to have potassium of 5.4. Prior to this visit he had some nausea or vomiting. P.o. intake was poor no urinary symptoms. UTI was initially suspected and started on nitrofurantoin which was later discontinued. Today he is feeling well. 06/20/24 Seen by Started on Tamsulosin No urinary symptoms today No hematuria PFSH Medical History H/O Mobitz type I block Hyperlipidemia Neuropathy Mitral valve regurgitation Hypothyroidism HTN (hypertension) CKD (chronic kidney disease) Chronic depression Social History Alcohol intake: never Patient Tobacco Use Status: Never used Tobacco Physical Exam Vital Signs: Last Vital Signs Pulse 79 06/20/24 10:15 BP 118/50 L 06/20/24 10:15 Pulse Ox 98 06/20/24 10:15 Oxygen Delivery Method Room Air 06/20/24 10:15 BMI result Body Mass Index 30.1 Const General: comfortable; No acute distress Orientation/consciousness: patient oriented x3 Eyes General: appearance normal, both eyes and all related structures Visual Almeida: normal visual almeida by confrontation Neck Neck: Yes supple and Yes no JVD Resp Effort & Inspection: normal respiratory effort and respiratory effort not decreased Auscultation: rhonchi Cardio Palpation: no palpable S3 and no palpable S4 Heart sounds: no rubs GI Inspection: Yes normal to inspection Palpation (GI): Soft to palpation Percussion: Yes normal to percussion Auscultation: normal bowel sounds General: Yes no CVA tenderness Back/Spine/Pelvis Back: no CVA tenderness Skin General skin exam: no petechiae and no purpura Neuro General: patient oriented x3 and no focal motor deficits Extrem General: No clubbing and No edema Results Reviewed Nephrology Results: Hgb 11.0 g/dl (14.0-18.0) L 03/27/24 WBC 6.0 X10*3/uL (4.8-10.8) 03/27/24 Plt Count 136 X10*3/uL (160-400) L 03/27/24 Sodium 138 mmol/L (135-145) 04/17/24 Potassium 4.8 mmol/L (3.3-5.1) 04/17/24 Chloride 107 mmol/L (96-108) 04/17/24 Carbon Dioxide 23 mmol/L (22-29) 04/17/24 BUN 43 mg/dL (9-16) H 04/17/24 Creatinine 2.34 mg/dL (0.5-1.4) H 04/17/24 Calcium 9.8 mg/dL (8.4-10.2) 04/17/24 Urine Protein Negative mg/dL (Neg-Trace) 03/27/24 Urine Creatinine 127.36 mg/dL 07/25/23 Assessment & Plan Assessment & Plan (1) CKD (chronic kidney disease): Code(s): N18.9 - Chronic kidney disease, unspecified Category: Medical Qualifiers: Chronic kidney disease stage 3 subtype: stage 3a (GFR 45-59) (2) Hematuria: Code(s): R31.9 - Hematuria, unspecified Category: Medical Qualifiers: Hematuria type: unspecified type Qualified Code(s): R31.9 - Hematuria, unspecified Plan 77-year-old man with longstanding hypertension diabetes mellitus with CKD. NO obstruction by imaging Avoid nephrotoxins including NSAIDS He had 1 episode of mild hyperkalemia. This is probably due to the continued use of MELO inhibitors in the setting of volume depletion which could have occurred with nausea or vomiting and poor p.o. intake. repeat potassium was normal Cr bumped up to 2.34 in March- recheck today Seen by And started on Tamsulosin h/o Hematuria s/o Cystoscopy No further hematuria. CT scan unremarkable; Urology follow-up as needed Orders: Orders Basic Metabolic Panel Today N18.9 - Chronic kidney disease, unspecified Complete Blood Count Auto Diff Today N18.9 - Chronic kidney disease, unspecified Basic Metabolic Panel 4 Months N18.9 - Chronic kidney disease, unspecified Coding Level of Care Code Est Pt Level 4 (16216) Diagnoses CKD (chronic kidney disease) N18.9 Chronic kidney disease stage 3 subtype: stage 3a (GFR 45-59) Hematuria, unspecified type R31.9 Hematuria type: unspecified type
== END 2024-06-20 10:37 | disposition home or self-care (01) ==
PROVIDERS: PCP Nurse Practitioner Family; Visit Provider Internal Medicine Hypertension Specialist
DX: E11.22 Type 2 diabetes mellitus with diabetic chronic kidney disease (principal); N18.32 Chronic kidney disease, stage 3b; R31.9 Hematuria, unspecified
CPT/HCPCS: 99213

== ENCOUNTER 2024-06-20 10:11 | Outpatient (REF) | payer MEDICARE, OTHER, SELFPAY ==
[2024-06-20 11:16] LABS: MANUAL DIFF FLAG NO
[2024-06-20 11:59] LABS: Basophils Percent Auto 0.4 % (0-2); Eosinophils Absolute Auto 0.1 X10*3/uL (0.0-0.4); Eosinophils Percent Auto 1.8 % (0-4); Hematocrit 30.4 % (42.0-52.0); Hemoglobin 9.9 g/dl (14.0-18.0); Imm Gran Abs Auto 0.03 X10*3/uL (0.00-0.03); Imm Gran Pct Auto 0.4 % (0.0-0.4); Lymphocytes Absolute Auto 1.5 X10*3/uL (1.2-4.9); Lymphocytes Percent Auto 22.6 % (20-40); Mean Corpuscular HGB Conc 32.6 g/dl (31.0-36.0); Mean Corpuscular Hemoglobin 30.7 pg (27.0-33.0); Mean Corpuscular Volume 94.4 fL (80.0-98.0); Mean Platelet Volume 11.3 fL (9.4-12.4); Monocytes Absolute Auto 0.4 X10*3/uL (0.1-1.2); Monocytes Percent Auto 6.4 % (2-11); Neutrophils Absolute Auto 4.6 x10*3/uL (2.0-8.3); Neutrophils Percent Auto 68.4 % (45-73); Platelet Count 136 X10*3/uL (160-400); Red Blood Count 3.22 X10*6/uL (4.60-5.80); Red Cell Distribution Width 12.6 % (11.0-16.0); White Blood Count 6.7 X10*3/uL (4.8-10.8)
[2024-06-20 12:27] LABS: Anion Gap 11 (12-20); Blood Urea Nitrogen 42 mg/dL (9-16); Calcium 10.2 mg/dL (8.4-10.2); Carbon Dioxide 23 mmol/L (22-29); Chloride 110 mmol/L (96-108); Estimated Glomerular Filt Rate 27; Glucose Random 141 mg/dL (60-115); Potassium 5.3 mmol/L (3.3-5.1); Sodium 139 mmol/L (135-145)
== END 2024-06-20 10:12 | disposition home or self-care (01) ==
LOC: HO.LAB 10:11
PROVIDERS: PCP Nurse Practitioner Family; Visit Provider Internal Medicine Hypertension Specialist
DX: I12.9 Hypertensive chronic kidney disease with stage 1 through stage 4 chronic kidney disease, or unspecified chronic kidney disease (principal); E11.22 Type 2 diabetes mellitus with diabetic chronic kidney disease; N18.31 Chronic kidney disease, stage 3a; R31.9 Hematuria, unspecified; Z79.84 Long term (current) use of oral hypoglycemic drugs
CPT/HCPCS: 36415; 80048; 85025; 99212

== ENCOUNTER 2024-08-01 05:45 | Emergency (ER) | payer OTHER, MEDICARE, MEDICAID, SELFPAY ==
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
--- NOTE | 2024-08-01 05:47 | ECG_ITS ---
Test Reason : chest Blood Pressure : / mmHG Vent. Rate : 068 BPM Atrial Rate : 068 BPM P-R Int : 178 ms QRS Dur : 156 ms QT Int : 456 ms P-R-T Axes : 080 -71 088 degrees QTc Int : 484 ms AV dual-paced rhythm Abnormal ECG When compared with ECG of 27-MAR-2024 09:21, Vent. rate has increased BY 6 BPM Referred By: Generic ED Physician Electronically Signed By:Oseas Lopes
[2024-08-01 05:55] VITALS: BP 143/60; PULSE 62; RESP 16; TEMP 36.3; O2SAT 100; BMI 29.7
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
[2024-08-01 06:51] LABS: MANUAL DIFF FLAG NO
[2024-08-01 06:56] LABS: Basophils Percent Auto 0.5 % (0-2); Eosinophils Absolute Auto 0.2 X10*3/uL (0.0-0.4); Eosinophils Percent Auto 2.8 % (0-4); Hematocrit 30.7 % (42.0-52.0); Hemoglobin 10.1 g/dl (14.0-18.0); Imm Gran Abs Auto 0.02 X10*3/uL (0.00-0.03); Imm Gran Pct Auto 0.3 % (0.0-0.4); Lymphocytes Absolute Auto 1.2 X10*3/uL (1.2-4.9); Mean Corpuscular HGB Conc 32.9 g/dl (31.0-36.0); Mean Corpuscular Hemoglobin 30.5 pg (27.0-33.0); Mean Corpuscular Volume 92.7 fL (80.0-98.0); Mean Platelet Volume 10.8 fL (9.4-12.4); Monocytes Absolute Auto 0.4 X10*3/uL (0.1-1.2); Monocytes Percent Auto 6.4 % (2-11); Neutrophils Absolute Auto 4.6 x10*3/uL (2.0-8.3); Platelet Count 144 X10*3/uL (160-400); Red Blood Count 3.31 X10*6/uL (4.60-5.80); Red Cell Distribution Width 12.3 % (11.0-16.0); White Blood Count 6.4 X10*3/uL (4.8-10.8)
[2024-08-01 07:00] LABS: INTERNATIONAL NORM RATIO 1.9 (0.9-1.1); Prothrombin Time 22.6 SEC (10.9-12.4)
[2024-08-01 07:03] LABS: Partial Thromboplastin Time 46.2 SEC (26.0-36.8)
[2024-08-01 07:07] LABS: Alanine Aminotransferase 9 U/L (0-40); Albumin Level 3.9 g/dL (3.5-5.0); Alkaline Phosphatase 71 U/L (39-117); Anion Gap 14 (12-20); Aspartate Amino Transferase 17 U/L (5-37); Bilirubin Total 0.4 mg/dL (0.0-1.0); Blood Urea Nitrogen 38 mg/dL (9-16); Calcium 9.7 mg/dL (8.4-10.2); Carbon Dioxide 21 mmol/L (22-29); Chloride 107 mmol/L (96-108); Creatinine Clr Calc Pharmacy 32.5; Estimated Glomerular Filt Rate 30; Glucose Random 120 mg/dL (60-115); Potassium 5.3 mmol/L (3.3-5.1); Sodium 137 mmol/L (135-145); Total Protein 7.4 g/dL (6.5-8.0)
[2024-08-01 07:16] LABS: Troponin-I High Sensitivity 8.6 ng/L (<3.5-35.0)
[2024-08-01] MEDS: Acetaminophen 325 MG TABLET 975 MG PO (07:17)
[2024-08-01 07:56] VITALS: BP 127/64; PULSE 60; RESP 9; TEMP 36.6; O2SAT 100
[2024-08-01 10:44] LABS: Glucose, Whole Blood 71 mg/dL (60-115)
[2024-08-01 11:18] VITALS: BP 128/64; PULSE 60; RESP 12; TEMP 36.1; O2SAT 100
== END 2024-08-01 11:18 | disposition home or self-care (01) ==
PROVIDERS: Emergency Medicine Emergency Medical Services; Emergency Provider Student in an Organized Health Care Education/Training Program; PCP Nurse Practitioner Family
DX: R07.89 Other chest pain (principal); E11.9 Type 2 diabetes mellitus without complications; I12.9 Hypertensive chronic kidney disease with stage 1 through stage 4 chronic kidney disease, or unspecified chronic kidney disease; N18.32 Chronic kidney disease, stage 3b; M54.2 Cervicalgia; M54.6 Pain in thoracic spine; R51.9 Headache, unspecified; Z79.899 Other long term (current) drug therapy
CPT/HCPCS: 36415; 70450; 71250; 72125; 80053; 82947; 84484; 85025; 85610; 85730; 93005; 99284; 99285

== ENCOUNTER → 2024-08-01 05:47 | Outpatient (BNV) | payer MEDICARE, MEDICAID, SELFPAY | PROVIDERS: Emergency Provider Student in an Organized Health Care Education/Training Program; PCP Nurse Practitioner Family; Visit Provider Internal Medicine Cardiovascular Disease | DX: R94.31 Abnormal electrocardiogram [ECG] [EKG] (principal) | CPT/HCPCS: 93010 ==

== ENCOUNTER → 2024-08-01 06:21 | Outpatient (BNV) | payer MEDICARE, MEDICAID, SELFPAY | PROVIDERS: Emergency Provider Emergency Medicine Emergency Medical Services; PCP Nurse Practitioner Family; Visit Provider Radiology Diagnostic Radiology | DX: M54.2 Cervicalgia (principal) | CPT/HCPCS: 71250 ==

== ENCOUNTER 2024-08-02 07:44 | Emergency (ER) | payer MEDICARE, MEDICAID, SELFPAY ==
--- NOTE | ~2024-08-02 | CT_ITS ---
EXAMINATION: CT ORBIT WITHOUT CONTRAST CLINICAL INFORMATION: Left eye hemorrhagic chemosis COMPARISON: None available. TECHNIQUE: This CT examination was performed using dose optimization techniques as appropriate, variously including the following: *Automated exposure control *Adjustment of mA and/or kV according to patient size (this includes techniques or standardized protocols for targeted exams where dose is matched to indication/reason for exam; i.e. extremities or head) *Use of iterative reconstruction technique DLP: 159 mGy-cm FINDINGS: There is preseptal soft tissue edema pattern. No hematoma, mass or fluid collection in the intraconal or the extraconal compartments of the orbits. The eyes are intact. The intraconal segment of the optic nerves are symmetric in diameter. The extraocular muscles are normal. The orbital rims, orbital fissures and orbital apices are intact. Foramina rotundum, foramen ovale and vidian canals are intact (type II). Calcified plaques in the cavernous and supraclinoid segments of the ICAs. The infraorbital foramina are intact. Mucosal thickening in the included paranasal sinuses. There is a 10 mm osteoma, left anterior ethmoid air cells/left frontal ethmoid recess. No air-fluid levels in the included paranasal sinuses. Tympanic cavities and mastoid cells are aerated. Pneumatized petrous apices, congenital. Probable old traumatic deformity nasal bones.. CT/CT orbit BI wo IV con IMPRESSION: No hematoma or fluid collections, retrobulbar/intraconal compartments. Electronically signed by: Eddie Talley MD 08/02/2024 09:49 AM EST
[2024-08-02 07:47] VITALS: BP 137/60; PULSE 68; RESP 16; TEMP 36.5; O2SAT 100; BMI 29.7
[2024-08-02 07:59] VITALS: BP 96/33; PULSE 68; RESP 18; TEMP 36.5; O2SAT 100
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
[2024-08-02] MEDS: Tetracaine HCl/PF 0.5% Oph Sol 4 ML DROPS 1 DROP EYE-LEFT (09:24)
[2024-08-02] MEDS: Fluorescein Sodium STRIP 1 STRIP EYE-LEFT (09:24)
[2024-08-02] MEDS: Diphth,Pertus(ACell),Tet Adult 0.5 ML SYRINGE IM (09:34)
[2024-08-02] MEDS: cefTRIAXone sodium 1 GM VIAL IVPUSH (09:34)
[2024-08-02 09:35] LABS: MANUAL DIFF FLAG NO
[2024-08-02 09:36] LABS: Basophils Percent Auto 0.4 % (0-2); Eosinophils Absolute Auto 0.1 X10*3/uL (0.0-0.4); Eosinophils Percent Auto 1.6 % (0-4); Hematocrit 31.2 % (42.0-52.0); Hemoglobin 10.4 g/dl (14.0-18.0); Imm Gran Abs Auto 0.02 X10*3/uL (0.00-0.03); Imm Gran Pct Auto 0.3 % (0.0-0.4); Lymphocytes Absolute Auto 1.1 X10*3/uL (1.2-4.9); Mean Corpuscular HGB Conc 33.3 g/dl (31.0-36.0); Mean Corpuscular Hemoglobin 30.8 pg (27.0-33.0); Mean Corpuscular Volume 92.3 fL (80.0-98.0); Mean Platelet Volume 10.9 fL (9.4-12.4); Monocytes Absolute Auto 0.4 X10*3/uL (0.1-1.2); Monocytes Percent Auto 5.2 % (2-11); Neutrophils Percent Auto 78.5 % (45-73); Platelet Count 154 X10*3/uL (160-400); Red Blood Count 3.38 X10*6/uL (4.60-5.80); Red Cell Distribution Width 12.4 % (11.0-16.0); White Blood Count 7.6 X10*3/uL (4.8-10.8)
[2024-08-02 09:51] LABS: Alanine Aminotransferase 7 U/L (0-40); Alkaline Phosphatase 78 U/L (39-117); Anion Gap 10 (12-20); Aspartate Amino Transferase 18 U/L (5-37); Bilirubin Total 0.5 mg/dL (0.0-1.0); Blood Urea Nitrogen 38 mg/dL (9-16); Calcium 9.2 mg/dL (8.4-10.2); Carbon Dioxide 24 mmol/L (22-29); Chloride 108 mmol/L (96-108); Creatinine Clr Calc Pharmacy 31.5; Estimated Glomerular Filt Rate 29; Glucose Random 150 mg/dL (60-115); Magnesium 2.2 mg/dL (1.6-2.6); Potassium 5.7 mmol/L (3.3-5.1); Sodium 136 mmol/L (135-145); Total Protein 7.5 g/dL (6.5-8.0)
[2024-08-02 09:52] LABS: INTERNATIONAL NORM RATIO 1.8 (0.9-1.1); Prothrombin Time 21.1 SEC (10.9-12.4)
[2024-08-02 10:02] VITALS: BP 142/69; PULSE 63; RESP 18; TEMP 36.6; O2SAT 100
[2024-08-02 10:05] VITALS: BP 142/69; PULSE 63; RESP 18; TEMP 36.6; O2SAT 100
[2024-08-02] MEDS: Sodium Zirconium Cyclosilicate 10 GM POWD.PACK PO (10:18)
--- NOTE | 2024-08-02 10:28 | PC.NURSE ---
attempted call to [facility] for report. no answer after several minutes
--- NOTE | 2024-08-02 11:11 | PC.NURSE ---
attempted to call [facility] ED again, no answer
== END 2024-08-02 10:05 | disposition short-term general hospital (02) ==
PROVIDERS: Physician Assistant; Emergency Provider Student in an Organized Health Care Education/Training Program; PCP Nurse Practitioner Family
DX: H11.32 Conjunctival hemorrhage, left eye (principal); H57.12 Ocular pain, left eye; E11.22 Type 2 diabetes mellitus with diabetic chronic kidney disease; I12.9 Hypertensive chronic kidney disease with stage 1 through stage 4 chronic kidney disease, or unspecified chronic kidney disease; N18.32 Chronic kidney disease, stage 3b; E03.9 Hypothyroidism, unspecified; I48.91 Unspecified atrial fibrillation; Z79.01 Long term (current) use of anticoagulants; Z23 Encounter for immunization; Z79.899 Other long term (current) drug therapy
CPT/HCPCS: 36415; 70480; 80053; 83735; 85025; 85610; 90471; 90715; 99285; J0696

== ENCOUNTER → 2024-08-02 08:31 | Outpatient (BNV) | payer MEDICARE, MEDICAID, SELFPAY | PROVIDERS: Emergency Provider Student in an Organized Health Care Education/Training Program; PCP Nurse Practitioner Family; Visit Provider Radiology Diagnostic Radiology | DX: H11.32 Conjunctival hemorrhage, left eye (principal) | CPT/HCPCS: 70480 ==

== ENCOUNTER 2024-10-17 08:52 | Outpatient (REF) | payer MEDICARE, MEDICAID, SELFPAY ==
[2024-10-17 10:11] LABS: Anion Gap 11 (12-20); Blood Urea Nitrogen 35 mg/dL (9-16); Calcium 9.3 mg/dL (8.4-10.2); Carbon Dioxide 23 mmol/L (22-29); Chloride 110 mmol/L (96-108); Estimated Glomerular Filt Rate 33; Glucose Random 128 mg/dL (60-115); Potassium 5.5 mmol/L (3.3-5.1); Sodium 138 mmol/L (135-145)
--- OUTSIDE RECORDS SUMMARY | 2024-10-17 11:46 | XMS_ITS | Clinical Summary ---
Author Organization Formerly [facility] Address [address] [place] [address] Care Team Providers Care Child Welfare Social Worker Name Role Phone Pcp, No Primary Care Provider Unavailabl e Allergies No known active allergies Encounters Date Type Department Care Team Description 08/02/2024 1:05 PM EST Ancillary Procedure [facility] Radiology [address] [place] [address] Provider, File Room 08/02/2024 11:26 AM EST - 08/02/2024 5:05 PM EST [facility] Emergency Department [address] [place] [address] Alyson Islas MD Abbott, Lincoln F, MD Subconjunctival hemorrhage of left eye (Primary Dx) Discharge Disposition: Home or Self Care 08/02/2024 Travel from Last 3 Months Social History Tobacco Use Types Packs/Day Years Used Date Smoking Tobacco: Never Assessed Sex and Gender Information Value Date Recorded Sex Assigned at Male 08/02/2024 1:15 PM EST Gender Identity Male 08/02/2024 1:15 PM EST Sexual Orientation Heterosexual (straight) 08/02 1:15 PM EST Last Filed Vital Signs Vital Sign Reading Time Taken Comments Blood Pressure 149/71 08/02/2024 3:36 PM EST Pulse 60 08/02/2024 3:36 PM EST Temperature 36 ??C (96.8 ??F) 08/02/2024 11:22 AM EST Respiratory Rate 16 08/02/2024 3:36 PM EST Oxygen Saturation 100% 08/02/2024 3:36 PM EST Inhaled Oxygen Concentration - - Weight - - Height - - Body Mass Index - - Plan of Treatment Health Maintenance Due Date Last Done Comments Hepatitis C Virus Screening 1945 DTaP/Tdap/Td Vaccines (1 - Tdap) 1964 Pneumococcal Vaccines 50+ (1 of 1 - PCV) 12/28/1995 Zoster (Shingles) Vaccine (1 of 2) 12/28/1995 RSV Vaccine 60 years and older and Patients (1 - 1-dose 75+ series) 2020 Influenza Vaccine 04/18/2024 10/05/2022, , 07/15/2021, Additional history exists COVID-19 Vaccine ( - season) 2024 01/01/2021, 12/11/2020 Hepatitis B Vaccines Aged Out No long er eligible based on patient's age to complete this topic Procedures Procedure Name Priority Date/Time Associated Diagnosis Comments FERNANDO ARCHIVE FOR REFERENCE ONLY CT Routine 08/02/2024 1:05 PM EST from Last 3 Months Results * FERNANDO Archive for reference only CT (08/02/2024 1:05 PM EST) Narrative SYSTEMGENERATED, DOCUMENTATION - 08/02/2024 1:02 PM EST This order has been auto-finalized and does not contain a result. File Room Provider IMG DIGITIZE FILMS from Last 3 Months Care Teams Child Welfare Social Worker Relationship Specialty Start Date End Date Pcp, No PCP - General General Medicine 08/02/24
--- OUTSIDE RECORDS SUMMARY | 2024-10-17 11:46 | XMS_ITS | Clinical Summary ---
Author Organization [facility] Address [address] [address] Care Team Providers Care Communication Lecturer Name Role Phone Nasima Resendez NP Primary Care Provider + Allergies No known active allergies Medications Aspirin 81 MG capsule Take 81 mg by mouth 04/13/2006 Active glipiZIDE (GLUCOTROL) 5 MG tablet Take 1 tablet by mouth in the morning and 1 tablet in the evening. 02/19/2022 Active levothyroxine (SYNTHROID, LEVOTHROID) 112 MCG tablet Take 1 tablet by mouth 04/07/2022 Active amLODIPine (NORVASC) 5 MG tablet Take 5 mg by mouth 1 (one) time each day 02/07/2023 Active atorvastatin (LIPITOR) 20 MG tablet Take 20 mg by mouth 1 (one) time each day 02/03/2023 Active omeprazole (PriLOSEC) [address] capsule Take by mouth 1 (one) time each day 12/16/2022 Active Pediatric Multiple Vitamins (Multivitamin Childrens) chewable tablet CHEW 1 TABLET BY MOUTH EVERY DAY 02/14/2023 Active glipiZIDE (GLUCOTROL XL) 10 MG 24 hr tablet Take 10 mg by mouth 1 (one) time each day 02/14/2023 Active Active Problems Problem Noted Date Diagnosed Date Depressive disorder 03/01/2023 Chronic kidney disease stage 3B 03/01/2023 Overview (03/01/2023): Per chart review meets GFR criterai Cobalamin deficiency 03/01/2023 Disorder of kidney due to diabetes mellitus 02/16 Hypothyroidism 03/01/2023 Mobitz type I incomplete atrioventricular block 03/01/2023 Type 2 diabetes mellitus 03/01/2023 Hematuria 02/14/2023 04/14/2023 Mitral valve regurgitation 09/09/2019 Overview (03/01/2023): Echo findings with murmur Personal history of tobacco use 02/27/2014 Hyperlipidemia 09/21/2010 Polyp of colon 02/27/2010 Hypertension 02/03/2007 Immunizations Name Administration Dates Next Due DT 10/14/2001 Influenza Whole 09/22/2020 Influenza, Unspecified 10/05/2022,2020,07/30/2019,06/22/2018,10/0 02/2017,07/18/2016,04/04/2016,08/27/2014,07/11/20 13,06/28/2012,06/18/2010 Pfizer SARS-COV-2 01/01/2021,12/11/2020 Pneumococcal Conjugate 03/03/2015 Pneumococcal Polysaccharide 12/29/2011, 3 Tdap 09/29/2011 Zoster 02/27/2014 Family History Medical History Relation Comments Heart disease Sister Hypertension Sister Relation Status Comments Sister Social History Tobacco Use Types Packs/Day Years Used Date Smoking Tobacco: Former Cigarettes Q uit: 2014 Tobacco Cessation:Counseling Given: Not Answered Sex and Gender Information Value Date Recorded Sex Assigned at Not on file Legal Sex Male 8:35 AM EST Gender Identity Not on file Sexual Orientation Not on file Last Filed Vital Signs Vital Sign Reading Time Taken Comments Blood Pressure 128/64 04/17/2023 2:49 PM EDT Pulse 74 04/17/2023 2:49 PM EDT Temperature - - Respiratory Rate - - Oxygen Saturation 98% 04/17/2023 2:49 PM EDT Inhaled Oxygen Concentration - - Weight 89.6 kg (197 lb 9.6 oz) 04/17/2023 2:49 P M EDT Height 177.8 cm (5' 10 ) 03/02/2023 1:55 PM EDT Body Mass Index 28.35 03/02/2023 1:55 PM EDT Plan of Treatment Health Maintenance Due Date Last Done Comments Pneumococcal Vaccine: 65+ Years (3 of 3 - PCV) 03/03/2016 03/03/2015, 12/29/2011, 11/14/2002 Diabetes: Hemoglobin A1C 10/26/2022 Diabetes: Ophthalmology Exam 10/26/2022 Diabetes: Pedal Pulse Checked 10/26/2022 Diabetes: Sensory Foot Exam 10/26/2022 Diabetes: Visual Foot Exam 10/26/2022 Influenza Vaccine (#1) 2024 3, 07/15/2021, 09/22/2020, Additional history exists Hepatitis B Vaccine Aged Out No longe r eligible based on patient's age to complete this topic Insurance [place] Care Teams Communication Lecturer Relationship Specialty Start Date End Date Nasima Resendez NP [address] [place] [phone] PCP - General Nurse Practitioner 10/24/22
== END 2024-10-17 08:53 | disposition home or self-care (01) ==
LOC: HO.LAB 08:52
PROVIDERS: PCP Nurse Practitioner Family; Visit Provider Internal Medicine Hypertension Specialist
DX: N18.9 Chronic kidney disease, unspecified (principal)
CPT/HCPCS: 36415; 80048

== ENCOUNTER 2024-10-21 09:22 | Outpatient (AMB) | payer MEDICARE, MEDICAID, SELFPAY ==
[2024-10-21 09:28] VITALS: BP 124/50; PULSE 75; O2SAT 99; BMI 30.1
--- NOTE | 2024-10-21 09:28 | HO.NEPHOV ---
Vital Signs 10/21/24 09:28 Height 5 ft 10 in Weight 210 lb BMI 30.1 BP 124/50 L Blood Pressure Location Rt brachial Position Sitting Pulse 75 Pulse Source Pulse Oximeter Pulse Oximetry (%) 99 Oxygen Delivery Method Room Air Intake Visit Reasons: CKD-LVM Full Service Supervisor Required: Yes Full Service Supervisor Name: Nicolas [phone] Accompanied by: Spouse Allergies No Known Allergies Allergy (Verified 10/21/24 09:30) Medication List - Last Reconciled 10/21/24 by Karson Miller MD amlodipine 5 mg PO DAILY aspirin 81 mg PO DAILY atorvastatin 20 mg PO DAILY glipizide ER 10 mg PO DAILY levothyroxine 88 mcg PO DAILY lisinopril-hydrochlorothiazide 20-25 mg 1 tab PO DAILY nitrofurantoin monohyd/m-cryst 100 mg (Macrobid) 100 mg PO Q12H 5 days omeprazole 20 mg PO DAILY rivaroxaban (Xarelto) 20 mg PO DAILY tamsulosin 0.4 mg PO DAILY HPI Comments Details: 76 years old man with DM2 with hyperglycemia, CKD3b, HTN, hypothyroidism, paroxysmal A-fib on DOAC, complete heart block s/p PPM 06/09. h/o Hematuria- seen by Urology and underwent cystoscopy Baseline creatinine is 1.54 Here for follow up Accompanied by family 04/16/24 Recently he visited ER and was found to have potassium of 5.4. Prior to this visit he had some nausea or vomiting. P.o. intake was poor no urinary symptoms. UTI was initially suspected and started on nitrofurantoin which was later discontinued. Today he is feeling well. 06/20/24 Seen by Started on Tamsulosin No urinary symptoms today No hematuria PFSH Medical History H/O Mobitz type I block Hyperlipidemia Neuropathy Mitral valve regurgitation Hypothyroidism HTN (hypertension) CKD (chronic kidney disease) Chronic depression Social History Alcohol intake: never Patient Tobacco Use Status: Never used Tobacco Physical Exam Vital Signs: Last Vital Signs Pulse 75 10/21/24 09:28 BP 124/50 L 10/21/24 09:28 Pulse Ox 99 10/21/24 09:28 Oxygen Delivery Method Room Air 10/21/24 09:28 BMI result Body Mass Index 30.1 Comfortable Neck supple no JVD. Lungs entry equal no rales. Heart S1-S2 heard no gallop or rub. Abdomen soft nontender. Neuro alert awake oriented. No asterixis. Extremities no edema. Results Reviewed Nephrology Results: Hgb 10.4 g/dl (14.0-18.0) L 08/02/24 WBC 7.6 X10*3/uL (4.8-10.8) 08/02/24 Plt Count 154 X10*3/uL (160-400) L 08/02/24 Sodium 138 mmol/L (135-145) 10/17/24 Potassium 5.5 mmol/L (3.3-5.1) H 10/17/24 Chloride 110 mmol/L (96-108) H 10/17/24 Carbon Dioxide 23 mmol/L (22-29) 10/17/24 BUN 35 mg/dL (9-16) H 10/17/24 Creatinine 1.99 mg/dL (0.5-1.4) H 10/17/24 Calcium 9.3 mg/dL (8.4-10.2) 10/17/24 Urine Protein Negative mg/dL (Neg-Trace) 03/27/24 Assessment & Plan Assessment & Plan (1) CKD (chronic kidney disease): Code(s): N18.9 - Chronic kidney disease, unspecified Category: Medical Qualifiers: Chronic kidney disease stage 3 subtype: stage 3a (GFR 45-59) (2) Hematuria: Code(s): R31.9 - Hematuria, unspecified Category: Medical Qualifiers: Hematuria type: unspecified type Qualified Code(s): R31.9 - Hematuria, unspecified Plan 77-year-old man with longstanding hypertension diabetes mellitus with CKD. NO obstruction by imaging Avoid nephrotoxins including NSAIDS CKD 3 B Relatively stable mild hyperkalemia. This is probably due to the continued use of MELO inhibitors in a setting of CKD Add Lokelma 5 gm PO 2 x week Discussed low K diet Cr bumped up to 2.34 in March of 2024- and currently at 1.9 Seen by And started on Tamsulosin h/o Hematuria s/o Cystoscopy No further hematuria. CT scan unremarkable; Urology follow-up as needed Orders: Orders Basic Metabolic Panel 3 Months N18.9 - Chronic kidney disease, unspecified Medications: New sodium zirconium cyclosilicate (Lokelma) 5 grams PO .2 times a week 30 ea 2RF Coding Level of Care Code Est Pt Level 4 (66601) Complex EM visit Add On G2211 Diagnoses CKD (chronic kidney disease) N18.9 Chronic kidney disease stage 3 subtype: stage 3a (GFR 45-59) Hematuria, unspecified type R31.9 Hematuria type: unspecified type
--- OUTSIDE RECORDS SUMMARY | 2024-10-21 09:48 | XMS_ITS | Clinical Summary ---
Author Organization [facility] Address [address] [place] [id number] Care Team Providers Care Freelance Writer Name Role Phone Pcp, No Primary Care Provider Unavailabl e Allergies No known active allergies Encounters Date Type Department Care Team Description 08/02/2024 1:05 PM EST Ancillary Procedure [facility] Radiology [address] [place] [address] Provider, File Room 08/02/2024 11:26 AM EST - 08/02/2024 5:05 PM EST Emergency [facility] Emergency Department [address] [place] [address] Alyson Islas MD Abbott, Lincoln F, MD [...] FILMS from Last 3 Months Care Teams Freelance Writer Relationship Specialty Start Date End Date Pcp, No PCP - General General Medicine 08/02/24
--- OUTSIDE RECORDS SUMMARY | 2024-10-21 09:49 | XMS_ITS | Clinical Summary ---
Author Organization [facility] Facility Address [address] [address] Care Team Providers Care Is Technician Name Role Phone Nasima Resendez NP Primary [...] [place] Care Teams Is Technician Relationship Specialty Start Date End Date Nasima Resendez NP [address] [place] [phone] PCP - General Nurse Practitioner 10/24/22
== END 2024-10-21 09:42 | disposition home or self-care (01) ==
PROVIDERS: PCP Nurse Practitioner Family; Visit Provider Internal Medicine Hypertension Specialist
DX: I12.9 Hypertensive chronic kidney disease with stage 1 through stage 4 chronic kidney disease, or unspecified chronic kidney disease (principal); E11.22 Type 2 diabetes mellitus with diabetic chronic kidney disease; N18.31 Chronic kidney disease, stage 3a; R31.9 Hematuria, unspecified
CPT/HCPCS: 99214; G2211

== ENCOUNTER → 2024-10-21 09:22 | Outpatient (BNVA) | payer MEDICARE, MEDICAID, SELFPAY | PROVIDERS: PCP Nurse Practitioner Family; Visit Provider Internal Medicine Hypertension Specialist | DX: N18.9 Chronic kidney disease, unspecified (principal); R31.9 Hematuria, unspecified | CPT/HCPCS: 99212 ==

== ENCOUNTER 2025-01-20 11:40 | Outpatient (REF) | payer MEDICARE, MEDICAID, SELFPAY ==
[2025-01-20 12:47] LABS: Anion Gap 11 (12-20); Blood Urea Nitrogen 46 mg/dL (9-16); Calcium 8.9 mg/dL (8.4-10.2); Carbon Dioxide 25 mmol/L (22-29); Chloride 108 mmol/L (96-108); Estimated Glomerular Filt Rate 32; Glucose Random 135 mg/dL (60-115); Potassium 4.6 mmol/L (3.3-5.1); Sodium 139 mmol/L (135-145)
--- OUTSIDE RECORDS SUMMARY | 2025-01-20 13:29 | XMS_ITS ---
Author Name [facility] Organization Unknown Encounters Encounter Type Encounter Reason Primary Diagnosis Location Date Emergency Conjunctival hemorrhage, left eye Conjunctival hemorrhage, left eye [facility] 08/02/2024 Care Team Organization Name Specialty Phone Email Start Date End Da te [facility] 08/04/2024 12/04/2024 [facility] NO PCP Primary Care 08/02/2024 [facility] 08/02/2024
--- OUTSIDE RECORDS SUMMARY | 2025-01-20 13:29 | XMS_ITS | Clinical Summary ---
Author Organization [facility] Facility Address [address] [address] Care Team Providers Care Triage Register Nurse Name Role Phone Nasima Resendez NP Primary [...] Polyp of colon 02/27/2010 Hypertension 02/03/2007 Immunizations Immunization Administration Dates Next Due DT 10/14/2001 Influenza [...] Due Date Last Done Comments Pneumococcal Vaccine: 50+ Years (3 of 3 - PCV) 03/03/2016 03/03/2015, 12/29/2011, 11/14/2002 Diabetes: Hemoglobin A1C 10/26/2022 Diabetes: Ophthalmology Exam 10/26/2022 Diabetes: Pedal Pulse Checked 10/26/2022 Diabetes: Sensory Foot Exam 10/26/2022 Diabetes: Visual Foot Exam 10/26/2022 Influenza Vaccine (Season Ended) 2025 10/05/2022, 07/15/2021, 09/22/2020, Additional history exists Hepatitis B Vaccine Aged Out No longe r eligible based on patient's age to complete this topic Insurance Medicare Medicaid [place] Medicare Medicaid [place] Care Teams Triage Register Nurse Relationship Specialty Start Date End Date Nasima Resendez NP [address] [place] [phone] PCP - General Nurse Practitioner 10/24/22
--- OUTSIDE RECORDS SUMMARY | 2025-01-20 13:29 | XMS_ITS | Clinical Summary ---
Author Organization [facility] Address [address] [place] [address] Care Team Providers Care Crm Manager Name Role Phone Pcp, No Primary Care Provider Unavailabl e Allergies No known active allergies Social History Tobacco Use Types Packs/Day Years Used Date Smoking Tobacco: Never Assessed Sex and Gender Information Value Date Recorded Sex Assigned at Male 08/02/2024 1:15 PM EST Legal Sex Male 9:22 AM EST Gender Identity Male 08/02/2024 1:15 PM [...] patient's age to complete this topic Insurance [facility] MEDICARE PART A & B Care Teams Crm Manager Relationship Specialty Start Date End Date Pcp, No PCP - General General Medicine 08/02/24
== END 2025-01-20 11:41 | disposition home or self-care (01) ==
LOC: HO.LAB 11:40
PROVIDERS: PCP Nurse Practitioner Family; Visit Provider Internal Medicine Hypertension Specialist
DX: N18.9 Chronic kidney disease, unspecified (principal)
CPT/HCPCS: 36415; 80048

== ENCOUNTER 2025-01-23 10:27 | Outpatient (AMB) | payer MEDICARE, MEDICAID, SELFPAY ==
[2025-01-23 10:29] VITALS: BP 125/60; PULSE 86; O2SAT 99; BMI 29.6
--- NOTE | 2025-01-23 10:29 | HO.NEPHOV ---
Vital Signs 01/23/25 10:29 Height 5 ft 10 in Weight 206 lb BMI 29.6 BP 125/60 Blood Pressure Location Lt brachial Position Sitting Pulse 86 Pulse Source Pulse Oximeter Pulse Oximetry (%) 99 Oxygen Delivery Method Room Air Intake Visit Reasons: CKD-LVM Supervisor Machine Workers Required: Yes Supervisor Machine Workers Name: noel [id number] Accompanied by: Self / Same As Patient Allergies No Known Allergies Allergy (Verified 01/23/25 10:31) Medication List - Last Reconciled 01/23/25 by Karson Miller MD amlodipine 5 mg PO DAILY aspirin 81 mg PO DAILY atorvastatin 20 mg PO DAILY glipizide ER 10 mg PO DAILY levothyroxine 88 mcg PO DAILY lisinopril-hydrochlorothiazide 20-25 mg 1 tab PO DAILY nitrofurantoin monohyd/m-cryst 100 mg (Macrobid) 100 mg PO Q12H 5 days omeprazole 20 mg PO DAILY rivaroxaban (Xarelto) 20 mg PO DAILY sodium zirconium cyclosilicate (Lokelma) 5 grams PO .2 times a week tamsulosin 0.4 mg PO DAILY HPI Comments Details: Elderly man with DM2 with hyperglycemia, CKD3b, HTN, hypothyroidism, paroxysmal A-fib on DOAC, complete heart block s/p PPM 06/09. h/o Hematuria- seen by Urology and underwent cystoscopy Baseline creatinine is 1.54 Here for follow up ; Accompanied by family 04/16/24; Recently he visited ER and was found to have potassium of 5.4. Prior to this visit he had some nausea or vomiting. P.o. intake was poor no urinary symptoms. UTI was initially suspected and started on nitrofurantoin which was later discontinued. Today he is feeling well. 06/20/24; Seen by Started on Tamsulosin; No urinary symptoms today;No hematuria 01/23/25- no new issues. On Lokelma QOD [facility] Medical History H/O Mobitz type I block Hyperlipidemia Neuropathy Mitral valve regurgitation Hypothyroidism HTN (hypertension) CKD (chronic kidney disease) Chronic depression Social History Alcohol intake: never Patient Tobacco Use Status: Never used Tobacco Physical Exam Vital Signs: Last Vital Signs Pulse 86 01/23/25 10:29 BP 125/60 01/23/25 10:29 Pulse Ox 99 01/23/25 10:29 Oxygen Delivery Method Room Air 01/23/25 10:29 BMI result Body Mass Index 29.6 Comfortable Neck supple no JVD. Lungs entry equal no rales. Heart S1-S2 heard no gallop or rub. Abdomen soft nontender. Neuro alert awake oriented. No asterixis. Extremities no edema. Results Reviewed Nephrology Results: Hgb 10.4 g/dl (14.0-18.0) L 08/02/24 WBC 7.6 X10*3/uL (4.8-10.8) 08/02/24 Plt Count 154 X10*3/uL (160-400) L 08/02/24 Sodium 139 mmol/L (135-145) 01/20/25 Potassium 4.6 mmol/L (3.3-5.1) 01/20/25 Chloride 108 mmol/L (96-108) 01/20/25 Carbon Dioxide 25 mmol/L (22-29) 01/20/25 BUN 46 mg/dL (9-16) H 01/20/25 Creatinine 2.04 mg/dL (0.5-1.4) H 01/20/25 Calcium 8.9 mg/dL (8.4-10.2) 01/20/25 Assessment & Plan Assessment & Plan (1) CKD (chronic kidney disease): Code(s): N18.9 - Chronic kidney disease, unspecified Category: Medical Qualifiers: Chronic kidney disease stage 3 subtype: stage 3a (GFR 45-59) (2) Hematuria: Code(s): R31.9 - Hematuria, unspecified Category: Medical Qualifiers: Hematuria type: unspecified type Qualified Code(s): R31.9 - Hematuria, unspecified Plan Elderly man with longstanding hypertension diabetes mellitus with CKD. NO obstruction by imaging Avoid nephrotoxins including NSAIDS CKD 3 B Relatively stable mild hyperkalemia. This is probably due to the continued use of MELO inhibitors in a setting of CKD Lower Lokelma 5 gm PO 2 x week Discussed low K diet Cr bumped up to 2.34 in March of 2024- and currently at 2.0 Seen by And started on Tamsulosin h/o Hematuria s/o Cystoscopy No further hematuria. CT scan unremarkable; Urology follow-up as needed Orders: Orders Basic Metabolic Panel 4 Months N18.9 - Chronic kidney disease, unspecified Complete Blood Count no Diff 4 Months N18.9 - Chronic kidney disease, unspecified Total Protein Urine Random 4 Months N18.9 - Chronic kidney disease, unspecified UA and rflx microscopic 4 Months N18.9 - Chronic kidney disease, unspecified Creatinine Urine 4 Months N18.9 - Chronic kidney disease, unspecified Coding Level of Care Code Est Pt Level 4 (14564) Diagnoses CKD (chronic kidney disease) N18.9 Chronic kidney disease stage 3 subtype: stage 3a (GFR 45-59) Hematuria, unspecified type R31.9 Hematuria type: unspecified type
--- OUTSIDE RECORDS SUMMARY | 2025-01-23 11:49 | XMS_ITS | Clinical Summary ---
Author Organization [facility] Address [address] [place] [address] Care Team Providers Care Cash Control Specialist Name Role Phone Pcp, No Primary Care [...] Patients (1 - 1-dose 75+ series) 2020 COVID-19 Vaccine (3 - season) 2024 01/01/2021, 12/11/2020 Influenza Vaccine 04/18/2025 10/05/2022, , 07/15/2021, Additional history exists Hepatitis B Vaccines Aged Out No long er eligible based on patient's age to complete this topic Insurance [facility] MEDICARE PART A & B Care Teams Cash Control Specialist Relationship Specialty Start Date End Date Pcp, No PCP - General General Medicine 08/02/24
--- OUTSIDE RECORDS SUMMARY | 2025-01-23 11:49 | XMS_ITS | Clinical Summary ---
Author Organization [facility] Facility Address [address] [address] Care Team Providers Care Shingles Roofer Helper Name Role Phone Nasima Resendez NP Primary [...] Medicaid [place] Care Teams Shingles Roofer Helper Relationship Specialty Start Date End Date Nasima Resendez NP [address] [place] [phone] PCP - General Nurse Practitioner 10/24/22
== END 2025-01-23 10:39 | disposition home or self-care (01) ==
LOC: HO.HKA 10:28
PROVIDERS: PCP Nurse Practitioner Family; Visit Provider Internal Medicine Hypertension Specialist
DX: N18.9 Chronic kidney disease, unspecified (principal); R31.9 Hematuria, unspecified
CPT/HCPCS: 99214

== ENCOUNTER → 2025-01-23 10:27 | Outpatient (BNVA) | payer MEDICARE, MEDICAID, SELFPAY | PROVIDERS: PCP Nurse Practitioner Family; Visit Provider Internal Medicine Hypertension Specialist | DX: N18.9 Chronic kidney disease, unspecified (principal); R31.9 Hematuria, unspecified | CPT/HCPCS: 99212 ==

== ENCOUNTER 2025-05-23 09:52 | Outpatient (REF) | payer MEDICARE, MEDICAID, SELFPAY ==
--- OUTSIDE RECORDS SUMMARY | 2025-05-23 10:39 | XMS_ITS ---
Author Name [facility] Organization Unknown Encounters Encounter Type Encounter Reason Primary Diagnosis Location Date Emergency Conjunctival hemorrhage, left eye Conjunctival hemorrhage, left eye [facility] 08/02/2024 Care Team Organization Name Specialty Phone Email Start Date End Da te [facility] 08/04/2024 12/04/2024 [facility] NO PCP Primary Care 08/02/2024 [facility] 08/02/2024
--- OUTSIDE RECORDS SUMMARY | 2025-05-23 10:39 | XMS_ITS | Clinical Summary ---
Author Organization [facility] Facility Address [address] [address] Care Team Providers Care Machine Operator Helper Name Role Phone Nasima Resendez NP [...] Visual Foot Exam 10/26/2022 Influenza Vaccine (#1) 2025 3, 07/15/2021, 09/22/2020, Additional history exists Hepatitis B Vaccine Aged Out No longe r eligible based on patient's age to complete this topic Insurance Medicare Medicaid [place] Medicare [place] Care Teams Machine Operator Helper Relationship Specialty Start Date End Date Nasima Resendez NP [address] [place] [phone] PCP - General Nurse Practitioner 10/24/22
--- OUTSIDE RECORDS SUMMARY | 2025-05-23 10:39 | XMS_ITS | Clinical Summary ---
Author Organization [facility] Address [address] [place] [address] Care Team Providers Care Joiners Supervisor Name Role Phone Pcp, No Primary Care [...] 60 08/02/2024 3:36 PM EST Temperature 36 C (96.8 F) 08/02/2024 11:22 AM EST Respiratory Rate 16 08/02/2024 3:36 PM EST Oxygen Saturation 100% 08/02/2024 3:36 PM EST Inhaled Oxygen Concentration - - Weight - - Height - - Body Mass Index - - Plan of Treatment Health Maintenance Due Date Last Done Comments Advance Care Planning 1945 Hepatitis C Virus Screening 1945 DTaP/Tdap/Td Vaccines [...] patient's age to complete this topic Insurance [facility] MEDICARE PART A & B Care Teams Joiners Supervisor Relationship Specialty Start Date End Date Pcp, No PCP - General General Medicine 08/02/24
[2025-05-23 11:03] LABS: Hematocrit 29.8 % (42.0-52.0); Hemoglobin 9.8 g/dl (14.0-18.0); Mean Corpuscular HGB Conc 32.9 g/dl (31.0-36.0); Mean Corpuscular Hemoglobin 30.4 pg (27.0-33.0); Mean Corpuscular Volume 92.5 fL (80.0-98.0); NRBC Abs Auto 0.000 X10*3/uL (0.0-0.012); NRBC Pct Auto 0.0 /100WBC (0.0-0.2); Platelet Count 142 X10*3/uL (160-400); Red Blood Count 3.22 X10*6/uL (4.60-5.80); White Blood Count 6.5 X10*3/uL (4.8-10.8)
[2025-05-23 11:26] LABS: Appearance Urine Clear; Glucose Urine UA Negative (Negative); PH 6.0 (5.0-9.0); Specific Gravity - Urine 1.015 (1.005-1.025); UMIC TRIGGER UA YES
[2025-05-23 11:28] LABS: Anion Gap 10 (12-20); Blood Urea Nitrogen 42 mg/dL (9-16); Calcium 8.9 mg/dL (8.4-10.2); Carbon Dioxide 24 mmol/L (22-29); Chloride 109 mmol/L (96-108); Estimated Glomerular Filt Rate 31; Potassium 5.4 mmol/L (3.3-5.1); Sodium 138 mmol/L (135-145)
[2025-05-23 12:05] LABS: Total Protein Urine Random 14 mg/dL (<12)
== END 2025-05-23 09:53 | disposition home or self-care (01) ==
LOC: HO.LAB 09:52
PROVIDERS: Visit Provider Internal Medicine Hypertension Specialist
DX: N18.9 Chronic kidney disease, unspecified (principal)
CPT/HCPCS: 36415; 80048; 81001; 82570; 84156; 85027

== ENCOUNTER 2025-05-27 09:43 | Outpatient (AMB) | payer MEDICARE, MEDICAID, SELFPAY ==
[2025-05-27 09:50] VITALS: BP 132/52; PULSE 76; O2SAT 99; BMI 29.8
--- NOTE | 2025-05-27 09:50 | HO.NEPHOV_ITS ---
Vital Signs 05/27/25 09:50 Height 5 ft 10 in Weight 208 lb BMI 29.8 BP 132/52 L Blood Pressure Location Lt brachial Position Sitting Pulse 76 Pulse Source Pulse Oximeter Pulse Oximetry (%) 99 Oxygen Delivery Method Room Air Intake Visit Reasons: 4 MO FU-M [place] Neck Whipper Required: Yes [place] Neck Whipper Name: Layla Alvarado Accompanied by: Self / Same As Patient Allergies No Known Allergies Allergy (Verified 05/27/25 09:51) Medication List - Last Reconciled 05/27/25 by Karson Miller MD amlodipine 5 mg PO DAILY aspirin 81 mg PO DAILY atorvastatin 20 mg PO DAILY cyanocobalamin (vitamin B-12) 1,000 mcg PO DAILY glipizide ER 10 mg PO DAILY levothyroxine 88 mcg PO DAILY lisinopril-hydrochlorothiazide 20-25 mg 1 tab PO DAILY nitrofurantoin monohyd/m-cryst 100 mg (Macrobid) 100 mg PO Q12H 5 days omeprazole 20 mg PO DAILY rivaroxaban (Xarelto) 20 mg PO DAILY sodium zirconium cyclosilicate (Lokelma) 5 grams PO .2 times a week tamsulosin 0.4 mg PO DAILY HPI Comments Details: Elderly man with DM2 with hyperglycemia, CKD3b, HTN, hypothyroidism, paroxysmal A-fib on DOAC, complete heart block s/p PPM 06/09. h/o Hematuria- seen by Urology and underwent cystoscopy Baseline creatinine is 1.54 Here for follow up ; Accompanied by family 04/16/24; Recently he visited ER and was found to have potassium of 5.4. Prior to this visit he had some nausea or vomiting. P.o. intake was poor no urinary symptoms. UTI was initially suspected and started on nitrofurantoin which was later discontinued. Today he is feeling well. 06/20/24; Seen by Started on Tamsulosin; No urinary symptoms today;No hematuria 01/23/25- no new issues. On Lokelma QOD 05/27/2025. Overall Garret is doing well. No new complaints today. No urinary symptoms. [facility] Medical History H/O Mobitz type I block Hyperlipidemia Neuropathy Mitral valve regurgitation Hypothyroidism HTN (hypertension) CKD (chronic kidney disease) Chronic depression Social History Alcohol intake: never Patient Tobacco Use Status: Never used Tobacco Physical Exam Vital Signs: Last Vital Signs Pulse 76 05/27/25 09:50 BP 132/52 L 05/27/25 09:50 Pulse Ox 99 05/27/25 09:50 Oxygen Delivery Method Room Air 05/27/25 09:50 BMI result Body Mass Index 29.8 Comfortable Neck supple no JVD. Lungs entry equal no rales. Heart S1-S2 heard no gallop or rub. Abdomen soft nontender. Neuro alert awake oriented. No asterixis. Extremities no edema. Results Reviewed Nephrology Results: Hgb, (14.0-18.0) 9.8 g/dl L 05/23/25 WBC, (4.8-10.8) 6.5 X10*3/uL 05/23/25 Plt Count, (160-400) 142 X10*3/uL L 05/23/25 Sodium, (135-145) 138 mmol/L 05/23/25 Potassium, (3.3-5.1) 5.4 mmol/L H 05/23/25 Chloride, (96-108) 109 mmol/L H 05/23/25 Carbon Dioxide, (22-29) 24 mmol/L 05/23/25 BUN, (9-16) 42 mg/dL H 05/23/25 Creatinine, (0.5-1.4) 2.09 mg/dL H 05/23/25 Calcium, (8.4-10.2) 8.9 mg/dL 05/23/25 Urine Protein, (Neg-Trace) Negative mg/dL 05/23/25 Urine Creatinine 103.02 mg/dL 05/23/25 Assessment & Plan Assessment & Plan (1) CKD (chronic kidney disease): Code(s): N18.9 - Chronic kidney disease, unspecified Category: Medical Qualifiers: Chronic kidney disease stage 3 subtype: stage 3a (GFR 45-59) (2) Hematuria: Code(s): R31.9 - Hematuria, unspecified Category: Medical Qualifiers: Hematuria type: unspecified type Qualified Code(s): R31.9 - Hematuria, unspecified Plan Elderly man with longstanding hypertension diabetes mellitus with CKD. NO obstruction by imaging Avoid nephrotoxins including NSAIDS CKD 3 B Relatively stable mild hyperkalemia. This is probably due to the continued use of MELO inhibitors in a setting of CKD Increase Lokelma 5 gm PO 3 x week Discussed low K diet Cr bumped up to 2.34 in March of 2024- and currently at 2.0 Seen by And started on Tamsulosin h/o Hematuria s/o Cystoscopy No further hematuria. CT scan unremarkable; Urology follow-up as needed Currently renal function is at baseline Mild anemia most likely due to CKD. No indication for Epogen yet. We will check iron stores prior to next visit. Orders: Orders Basic Metabolic Panel 3 Months N18.9 - Chronic kidney disease, unspecified IRON PROFILE 3 Months N18.9 - Chronic kidney disease, unspecified Ferritin 3 Months N18.9 - Chronic kidney disease, unspecified Complete Blood Count no Diff 3 Months N18.9 - Chronic kidney disease, unspecified Medications: Changed From sodium zirconium cyclosilicate (Lokelma) 5 grams PO .2 times a week 30 ea 2RF To sodium zirconium cyclosilicate (Lokelma) 5 grams PO .3 times a week 30 ea 2RF Coding Level of Care Code Est Pt Level 4 (56148) Diagnoses CKD (chronic kidney disease) N18.9 Chronic kidney disease stage 3 subtype: stage 3a (GFR 45-59) Hematuria, unspecified type R31.9 Hematuria type: unspecified type
--- OUTSIDE RECORDS SUMMARY | 2025-05-27 11:23 | XMS_ITS | Clinical Summary ---
Author Organization [facility] Facility Address [address] [address] Care Team Providers Care Welder Repair Name Role Phone Nasima Resendez NP Primary [...] Medicaid [place] Care Teams Welder Repair Relationship Specialty Start Date End Date Nasima Resendez NP [address] [place] [phone] PCP - General Nurse Practitioner 10/24/22
--- OUTSIDE RECORDS SUMMARY | 2025-05-27 11:23 | XMS_ITS | Clinical Summary ---
Author Organization [facility] Address [address] [place] [address] Care Team Providers Care Research Project Manager Name Role Phone Pcp, No Primary [...] patient's age to complete this topic Insurance [facility] MEDICARE PART A & B Care Teams Research Project Manager Relationship Specialty Start Date End Date Pcp, No PCP - General General Medicine 08/02/24
== END 2025-05-27 10:00 | disposition home or self-care (01) ==
LOC: HO.HKA 09:44
PROVIDERS: PCP Nurse Practitioner Family; Visit Provider Internal Medicine Hypertension Specialist
DX: N18.9 Chronic kidney disease, unspecified (principal); R31.9 Hematuria, unspecified
CPT/HCPCS: 99214

== ENCOUNTER → 2025-05-27 09:43 | Outpatient (BNVA) | payer MEDICARE, MEDICAID, SELFPAY | PROVIDERS: PCP Nurse Practitioner Family; Visit Provider Internal Medicine Hypertension Specialist | DX: N18.31 Chronic kidney disease, stage 3a (principal); R31.9 Hematuria, unspecified; Z79.82 Long term (current) use of aspirin; E11.65 Type 2 diabetes mellitus with hyperglycemia; Z79.84 Long term (current) use of oral hypoglycemic drugs; E11.22 Type 2 diabetes mellitus with diabetic chronic kidney disease | CPT/HCPCS: 99212 ==